=== PATIENT | male | born 1935 | race Caucasian/White ===

== ENCOUNTER 2019-03-22 21:25 | Emergency (ER) | payer MEDICARE, BC | END 2019-03-22 22:35 | disposition home or self-care (01) | LOC: MADERS 21:25 | DX: I10 Essential (primary) hypertension (principal); Z79.891 Long term (current) use of opiate analgesic; Z79.82 Long term (current) use of aspirin; Z79.899 Other long term (current) drug therapy | CPT/HCPCS: 99282 ==

== ENCOUNTER 2021-02-04 01:29 | Emergency (ER) | payer MEDICARE, BC ==
[2021-02-04] MEDS ORDERED: Sodium Chloride 0.9% 100 ML ONE ×2 (02:08→03:53)
[2021-02-04] MEDS ORDERED: Sodium Chloride 0.9% 250 ML 500 ML ONE (02:08)
[2021-02-04] MEDS ORDERED: Vancomycin HCl 750 MG VIAL ONE (02:08)
[2021-02-04] MEDS ORDERED: Cefepime 2 GM VIAL ONE (02:09)
[2021-02-04 02:34] LABS: INR-International Normal Ratio 0.9; PTT 26.4 sec (22.9-36.1); Prothrombin Time 12.3 sec (12.0-14.7)
[2021-02-04 02:35] LABS: Hemoglobin 12.1 g/dL (14.0-18.0); Mean Corpuscular HGB CONC 34.2 g/dL (32.0-36.0); Mean Corpuscular Hemoglobin 32.5 pg (27.0-31.0); Mean Platelet Volume 7.2 fL (7.4-10.4); Platelet Count 110 thou/uL (130-400); RBC Distribution Width 13.9 % (11.5-14.5); Red Blood Cell (RBC) Count 3.72 mill/uL (4.70-6.10); White Blood Cell (WBC) Count 2.9 thou/uL (4.8-10.8)
[2021-02-04 03:00] LABS: ALT (SGPT) 20 U/L (8-55); AST (SGOT) 24 U/L (5-34); Albumin 3.5 g/dL (3.4-4.8); Alkaline Phosphatase 76 U/L (40-110); Anion Gap 12 mmol/L (10-20); BUN (Urea Nitrogen) 20 mg/dL (8.4-25.7); Bilirubin, Total 0.7 mg/dL (0.2-1.2); CK (CPK) 29 U/L (30-200); Calc. Creatinine Clearance 0 mL/min (70-130); Calcium 8.6 mg/dL (7.8-10.44); Carbon Dioxide 26 mmol/L (23-31); Chloride 101 mmol/L (98-107); Globulin 2.9 g/dL (2.4-3.5); Glucose 136 mg/dL (83-110); Lipase 15 U/L (8-78); Potassium 4.5 mmol/L (3.5-5.1); Protein, Total 6.4 g/dL (5.8-8.1); Sodium 134 mmol/L (136-145)
[2021-02-04 03:22] LABS: Band 7 % (5-11); Lymphocytes 7 % (21-51); MDiff Complete? YES; Monocytes 5 % (0-10); Neutrophil 79 % (42-75); Platelet Morphology Comment Appears Decreased; Polychromasia SLIGHT = 2-3 cells (100X) (0-2/hpf); Reactive Lymphocytes 2 % (0-10)
[2021-02-04 03:38] LABS: Bilirubin Negative (Negative); Blood, Urine Negative (Negative); Clarity Clear (Clear); Glucose, Urine (Dipstick) Negative (Negative); Ketone, Urine Negative (Negative); Leukocyte Negative (Negative); Nitrite Negative (Negative); Protein, Urine (Dipstick) Negative (Neg-Trace); pH, Urine 8.5 (5.0-9.0)
[2021-02-04] MEDS ORDERED: Tranexamic Acid 1,000 MG/10 ML VIAL ONE ×3 (03:52→04:03)
[2021-02-04] MEDS ORDERED: manNITOL 20% 500 ML ONE (03:52)
[2021-02-04] MEDS ORDERED: Sodium Chloride 0.9% 1,000 ML ONE (03:53)
[2021-02-04] MEDS ORDERED: Sodium Chloride 0.9% 250 ML 250 ML ONE (04:03)
[2021-02-04] MEDS ORDERED: Sodium Chloride 0.9% 100 ML BAG ONE (06:53)
[2021-02-04] MEDS ORDERED: Iopamidol 370 76% 125 ML VIAL FS ONE (11:25)
== END 2021-02-04 04:46 | disposition short-term general hospital (02) ==
LOC: MADERS 01:29
DX: A41.9 Sepsis, unspecified organism (principal); R65.20 Severe sepsis without septic shock; I62.01 Nontraumatic acute subdural hemorrhage; I62.03 Nontraumatic chronic subdural hemorrhage; R53.1 Weakness; I10 Essential (primary) hypertension; Z85.01 Personal history of malignant neoplasm of esophagus; Z79.891 Long term (current) use of opiate analgesic; Z79.899 Other long term (current) drug therapy
CPT/HCPCS: 70450; 71045; 71275; 80053; 81003; 82140; 82550; 83605; 83690; 84443; 84484; 85025; 85610; 85730; 87040; 87086; 87804; 93005; 94760; 96365; 96368; 96375; 96376; J0692; J3370; J3490; J7050; J7799; Q9967

== ENCOUNTER 2021-02-11 21:34 | Inpatient (IN) | payer MEDICARE, BC ==
[2021-02-11] MEDS ORDERED: Metoclopramide HCl 10 MG TAB PER TUBE PRN (22:07)
[2021-02-11] MEDS ORDERED: Bisacodyl 10 MG SUPP PR PRN (22:07)
[2021-02-11] MEDS ORDERED: Ondansetron ODT 4 MG TAB PO PRN (22:07)
[2021-02-11] MEDS ORDERED: Hydrocodone-Acetamin 15 ML UDCUP PER TUBE PRN (22:07)
[2021-02-12] MEDS ORDERED: Cephalexin 250 MG CAP PO SCH ×2 (00:30→09:00)
[2021-02-12] MEDS ORDERED: Amiodarone 200 MG TAB PO SCH ×2 (00:30→09:00)
[2021-02-12 06:02] LABS: ALT (SGPT) 16 U/L (8-55); AST (SGOT) 23 U/L (5-34); Albumin 2.9 g/dL (3.4-4.8); Alkaline Phosphatase 71 U/L (40-110); Anion Gap 11 mmol/L (10-20); BUN (Urea Nitrogen) 21 mg/dL (8.4-25.7); Bilirubin, Total 0.6 mg/dL (0.2-1.2); Calc. Creatinine Clearance 100 mL/min (70-130); Calcium 8.2 mg/dL (7.8-10.44); Carbon Dioxide 24 mmol/L (23-31); Chloride 102 mmol/L (98-107); Globulin 2.8 g/dL (2.4-3.5); Glucose 102 mg/dL (83-110); Potassium 4.5 mmol/L (3.5-5.1); Protein, Total 5.7 g/dL (5.8-8.1); Sodium 132 mmol/L (136-145)
[2021-02-12 06:11] LABS: Eosinophils 3 % (0-10); Hemoglobin 11.6 g/dL (14.0-18.0); Lymphocytes 15 % (21-51); MDiff Complete? YES; Mean Corpuscular HGB CONC 33.4 g/dL (32.0-36.0); Mean Corpuscular Hemoglobin 31.6 pg (27.0-31.0); Mean Corpuscular Volume 94.5 fL (78.0-98.0); Mean Platelet Volume 6.8 fL (7.4-10.4); Monocytes 9 % (0-10); Neutrophil 73 % (42-75); Platelet Count 160 thou/uL (130-400); Platelet Morphology Comment Appears Adequate; RBC Distribution Width 14.1 % (11.5-14.5); RBC Morphology Normal; Red Blood Cell (RBC) Count 3.68 mill/uL (4.70-6.10); White Blood Cell (WBC) Count 4.9 thou/uL (4.8-10.8)
[2021-02-12] MEDS ORDERED: Ondansetron ODT 4 MG TAB PER TUBE PRN (12:30)
[2021-02-12] MEDS ORDERED: Melatonin 3 MG TAB PER TUBE PRN (13:12)
[2021-02-12] MEDS ORDERED: Sodium Bicarbonate Tab 325 MG TAB PER TUBE PRN (13:45)
[2021-02-12] MEDS ORDERED: Pancrelipase DR 12,000 1 CAP FS PRN (13:45)
[2021-02-12] MEDS ORDERED: Scopolamine 1.5 mg/72 hour Patch TD SCH (14:00)
[2021-02-12] MEDS ORDERED: Atropine Sulfate 1% Ophth Soln 5 ml Bottle PO SCH ×3 (16:30→18:00)
[2021-02-12] MEDS: Atropine Sulfate 1% Ophth Soln 5 ml Bottle PO SCH (18:22)
[2021-02-12] MEDS: Cephalexin 250 MG/5 ML Oral Suspension PER TUBE SCH (20:20)
[2021-02-12] MEDS: Amiodarone 200 MG TAB PER TUBE SCH (20:21)
[2021-02-13] MEDS: Atropine Sulfate 1% Ophth Soln 5 ml Bottle PO SCH ×4 (05:37→17:20)
[2021-02-13] MEDS: Cephalexin 250 MG/5 ML Oral Suspension PER TUBE SCH ×2 (09:24→21:20)
[2021-02-13] MEDS: Amiodarone 200 MG TAB PER TUBE SCH ×2 (09:33→21:18)
[2021-02-13] MEDS: Pantoprazole 40 MG GRANULES PACKET PER TUBE SCH (09:33)
[2021-02-13] MEDS ORDERED: Amiodarone 200 MG TAB ONE (20:20)
[2021-02-14] MEDS: Atropine Sulfate 1% Ophth Soln 5 ml Bottle PO SCH ×5 (00:32→23:54)
[2021-02-14] MEDS: Pantoprazole 40 MG GRANULES PACKET PER TUBE SCH (08:40)
[2021-02-14] MEDS: Amiodarone 200 MG TAB PER TUBE SCH ×2 (08:40→20:26)
[2021-02-14] MEDS: Cephalexin 250 MG/5 ML Oral Suspension PER TUBE SCH ×2 (08:45→20:28)
[2021-02-14 16:34] VITALS: BMI 23.6
[2021-02-15] MEDS: Atropine Sulfate 1% Ophth Soln 5 ml Bottle PO SCH ×3 (05:59→17:57)
[2021-02-15] MEDS ORDERED: Ibuprofen 600 MG TAB PER TUBE PRN (08:59)
[2021-02-15] MEDS: Pantoprazole 40 MG GRANULES PACKET PER TUBE SCH (09:05)
[2021-02-15] MEDS: Amiodarone 200 MG TAB PER TUBE SCH ×2 (09:06→20:51)
[2021-02-15] MEDS: Cephalexin 250 MG/5 ML Oral Suspension PER TUBE SCH ×2 (09:11→20:53)
[2021-02-15] MEDS ORDERED: Betamethasone 0.1% Cream 15 GM TUBE TOP PRN (12:20)
[2021-02-16] MEDS: Atropine Sulfate 1% Ophth Soln 5 ml Bottle PO SCH ×4 (00:33→17:34)
[2021-02-16] MEDS: Cephalexin 250 MG/5 ML Oral Suspension PER TUBE SCH ×2 (09:04→21:06)
[2021-02-16] MEDS: Amiodarone 200 MG TAB PER TUBE SCH ×2 (09:06→21:05)
[2021-02-16] MEDS ORDERED: Cephalexin 250 MG/5 ML Oral Suspension ONE (19:49)
[2021-02-17] MEDS: Atropine Sulfate 1% Ophth Soln 5 ml Bottle PO SCH ×4 (00:11→18:15)
[2021-02-17] MEDS: Amiodarone 200 MG TAB PER TUBE SCH ×2 (09:55→21:13)
[2021-02-17] MEDS: Cephalexin 250 MG/5 ML Oral Suspension PER TUBE SCH (09:56)
[2021-02-18] MEDS: Atropine Sulfate 1% Ophth Soln 5 ml Bottle PO SCH ×5 (00:50→23:40)
[2021-02-18] MEDS: Amiodarone 200 MG TAB PER TUBE SCH ×2 (09:45→20:32)
[2021-02-19 05:39] LABS: #Eosinphils 0.1 thou/uL (0.0-0.7); #Lymphocytes 1.8 thou/uL (1.20-3.40); #Monocytes 0.8 thou/uL (0.11-0.59); #Neutrophils 3.9 thou/uL (1.40-6.50); %Basophils 0.8 % (0.0-1.0); %Eosinophils 1.5 % (0.0-10.0); %Lymphocytes 26.6 % (21.0-51.0); %Monocytes 12.5 % (0.0-10.0); %Neutrophils 58.7 % (42.0-75.0); Hemoglobin 11.3 g/dL (14.0-18.0); Mean Corpuscular HGB CONC 33.7 g/dL (32.0-36.0); Mean Corpuscular Hemoglobin 32.4 pg (27.0-31.0); Mean Corpuscular Volume 96.1 fL (78.0-98.0); Mean Platelet Volume 6.1 fL (7.4-10.4); Platelet Count 165 thou/uL (130-400); RBC Distribution Width 14.6 % (11.5-14.5); Red Blood Cell (RBC) Count 3.49 mill/uL (4.70-6.10); White Blood Cell (WBC) Count 6.6 thou/uL (4.8-10.8)
[2021-02-19] MEDS: Atropine Sulfate 1% Ophth Soln 5 ml Bottle PO SCH ×4 (05:45→23:42)
[2021-02-19 05:47] LABS: Anion Gap 11 mmol/L (10-20); BUN (Urea Nitrogen) 31 mg/dL (8.4-25.7); Calc. Creatinine Clearance 87 mL/min (70-130); Calcium 8.4 mg/dL (7.8-10.44); Carbon Dioxide 27 mmol/L (23-31); Chloride 103 mmol/L (98-107); Glucose 89 mg/dL (83-110); Potassium 4.7 mmol/L (3.5-5.1); Sodium 136 mmol/L (136-145)
[2021-02-19] MEDS: Amiodarone 200 MG TAB PER TUBE SCH ×2 (09:16→20:45)
[2021-02-20] MEDS: Atropine Sulfate 1% Ophth Soln 5 ml Bottle PO SCH (05:42)
[2021-02-20] MEDS: Amiodarone 200 MG TAB PER TUBE SCH (09:58)
[2021-02-20 10:15] VITALS: BP 105/62; TEMP 99
[2021-02-24] MEDS ORDERED: Amiodarone 200 MG TAB PER TUBE SCH (21:00)
[2021-03-11] MEDS ORDERED: Amiodarone 200 MG TAB PER TUBE SCH (09:00)
== END 2021-02-20 11:00 | disposition home or self-care (01) | DRG 948 ==
LOC: MADMS 21:34
PROVIDERS: ADMIT Family Medicine; ATTEND Family Medicine
DX: R53.81 Other malaise (principal); E87.1 Hypo-osmolality and hyponatremia; E44.0 Moderate protein-calorie malnutrition; D64.9 Anemia, unspecified; K11.7 Disturbances of salivary secretion; I48.0 Paroxysmal atrial fibrillation; Z85.01 Personal history of malignant neoplasm of esophagus; Z92.21 Personal history of antineoplastic chemotherapy; Z92.3 Personal history of irradiation; Z93.1 Gastrostomy status; Z68.23 Body mass index [BMI] 23.0-23.9, adult; Z95.0 Presence of cardiac pacemaker; Z87.891 Personal history of nicotine dependence
CPT/HCPCS: 36415; 80048; 80053; 85007; 85025; 85027

== ENCOUNTER 2021-02-28 14:30 | Outpatient (CLI) | payer MEDICARE, BC | END 2021-02-28 14:31 | disposition home or self-care (01) | LOC: MADRAD 14:30 | PROVIDERS: ATTEND Neurological Surgery | DX: S06.5X9A Traumatic subdural hemorrhage with loss of consciousness of unspecified duration, initial encounter (principal); G93.5 Compression of brain | CPT/HCPCS: 70450 ==

== ENCOUNTER 2021-03-08 13:48 | Outpatient (CLI) | payer MEDICARE, BC | END 2021-03-08 13:49 | disposition home or self-care (01) | LOC: MADCT 13:48 | PROVIDERS: ATTEND Neurological Surgery | DX: I62.03 Nontraumatic chronic subdural hemorrhage (principal) | CPT/HCPCS: 70450 ==

== ENCOUNTER 2021-03-24 15:11 | Inpatient (IN) | payer MEDICARE, BC ==
[2021-03-24 15:35] VITALS: BMI 25.3
[2021-03-24] MEDS ORDERED: Atropine Sulfate 1% Ophth Soln 5 ml Bottle PO PRN (19:01)
[2021-03-24] MEDS ORDERED: Metoclopramide HCl 10 MG TAB PER TUBE PRN (19:01)
[2021-03-24] MEDS ORDERED: Promethazine HCl 25 MG SUPP PR PRN (19:01)
[2021-03-24] MEDS ORDERED: HYDROcodone/Acetaminophen 10/325 mg Tablet PO PRN (19:01)
[2021-03-24] MEDS ORDERED: Docusate 100 MG CAP PO PRN (19:01)
[2021-03-24] MEDS ORDERED: Ondansetron ODT 4 MG TAB PO PRN (19:01)
[2021-03-24] MEDS ORDERED: Bisacodyl 10 MG SUPP PR PRN (19:01)
[2021-03-24] MEDS: Sodium Chloride 1 GM TAB PER TUBE SCH (20:55)
[2021-03-25] MEDS: Sodium Chloride 1 GM TAB PER TUBE SCH ×3 (09:00→19:45)
[2021-03-25] MEDS: Polyethylene Glycol 3350 17 GM Packet PER TUBE SCH (09:00)
[2021-03-25] MEDS: Amiodarone 200 MG TAB PO SCH (09:00)
[2021-03-25] MEDS: Pantoprazole 40 MG GRANULES PACKET PO SCH (13:45)
[2021-03-25] MEDS: HYDROcodone/Acetaminophen 10/325 mg Tablet PO PRN ×2 (13:45→22:56)
[2021-03-26 06:10] LABS: Anion Gap 10 mmol/L (10-20); BUN (Urea Nitrogen) 31 mg/dL (8.4-25.7); Calc. Creatinine Clearance 101 mL/min (70-130); Calcium 8.6 mg/dL (7.8-10.44); Carbon Dioxide 28 mmol/L (23-31); Chloride 102 mmol/L (98-107); Glucose 106 mg/dL (83-110); Sodium 135 mmol/L (136-145)
[2021-03-26] MEDS: Amiodarone 200 MG TAB PO SCH (09:31)
[2021-03-26] MEDS: Sodium Chloride 1 GM TAB PER TUBE SCH ×3 (09:31→20:08)
[2021-03-26] MEDS: Pantoprazole 40 MG GRANULES PACKET PO SCH (09:31)
[2021-03-26] MEDS: Polyethylene Glycol 3350 17 GM Packet PER TUBE SCH (09:32)
[2021-03-26] MEDS: HYDROcodone/Acetaminophen 10/325 mg Tablet PO PRN (20:50)
[2021-03-27] MEDS: Amiodarone 200 MG TAB PO SCH (12:00)
[2021-03-27] MEDS: Sodium Chloride 1 GM TAB PER TUBE SCH ×3 (12:00→20:37)
[2021-03-27] MEDS: Polyethylene Glycol 3350 17 GM Packet PER TUBE SCH (12:00)
[2021-03-27] MEDS: Pantoprazole 40 MG GRANULES PACKET PO SCH (12:00)
[2021-03-27] MEDS ORDERED: Sodium Chloride 1 GM TAB ONE (12:09)
[2021-03-27] MEDS: HYDROcodone/Acetaminophen 10/325 mg Tablet PO PRN (17:28)
[2021-03-28] MEDS: Sodium Chloride 1 GM TAB PER TUBE SCH ×3 (11:45→20:27)
[2021-03-28] MEDS: Amiodarone 200 MG TAB PO SCH (11:45)
[2021-03-28] MEDS: Pantoprazole 40 MG GRANULES PACKET PO SCH (11:45)
[2021-03-28] MEDS: Polyethylene Glycol 3350 17 GM Packet PER TUBE SCH (11:45)
[2021-03-29] MEDS: HYDROcodone/Acetaminophen 10/325 mg Tablet PO PRN (04:26)
[2021-03-29 05:44] LABS: Anion Gap 13 mmol/L (10-20); BUN (Urea Nitrogen) 30 mg/dL (8.4-25.7); Calc. Creatinine Clearance 95 mL/min (70-130); Carbon Dioxide 27 mmol/L (23-31); Chloride 103 mmol/L (98-107); Glucose 103 mg/dL (83-110); Potassium 5.5 mmol/L (3.5-5.1); Sodium 137 mmol/L (136-145)
[2021-03-29] MEDS: Pantoprazole 40 MG GRANULES PACKET PO SCH (08:34)
[2021-03-29] MEDS: Sodium Chloride 1 GM TAB PER TUBE SCH ×2 (08:34→17:16)
[2021-03-29] MEDS: Amiodarone 200 MG TAB PO SCH (08:34)
[2021-03-29 17:38] LABS: SARS-CoV-2 NAA Rapid Test Not Detected (NotDetected)
[2021-03-30] MEDS: HYDROcodone/Acetaminophen 10/325 mg Tablet PO PRN (03:38)
[2021-03-30 08:00] VITALS: BP 113/66; TEMP 97.4
[2021-03-30] MEDS: Pantoprazole 40 MG GRANULES PACKET PO SCH (09:35)
[2021-03-30] MEDS: Amiodarone 200 MG TAB PO SCH (09:35)
== END 2021-03-30 14:15 | disposition home or self-care (01) | DRG 948 ==
LOC: MADMS 15:11
PROVIDERS: ADMIT Family Medicine; ATTEND Family Medicine
DX: R53.81 Other malaise (principal); C15.9 Malignant neoplasm of esophagus, unspecified; E87.1 Hypo-osmolality and hyponatremia; I10 Essential (primary) hypertension; G89.29 Other chronic pain; Z95.0 Presence of cardiac pacemaker; Z93.1 Gastrostomy status; Z87.891 Personal history of nicotine dependence; I48.0 Paroxysmal atrial fibrillation; S06.5X9D Traumatic subdural hemorrhage with loss of consciousness of unspecified duration, subsequent encounter; R13.10 Dysphagia, unspecified; E87.5 Hyperkalemia; X58.XXXD Exposure to other specified factors, subsequent encounter
CPT/HCPCS: 0240U; 36415; 80048

== ENCOUNTER 2021-04-04 12:40 | Outpatient (CLI) | payer MEDICARE, BC | END 2021-04-04 12:41 | disposition home or self-care (01) | LOC: MADRAD 12:40 | PROVIDERS: ATTEND Neurological Surgery | DX: I62.00 Nontraumatic subdural hemorrhage, unspecified (principal) | CPT/HCPCS: 70450 ==

== ENCOUNTER 2021-07-13 12:31 | Outpatient (CLI) | payer MEDICARE, BC | END 2021-07-13 12:32 | disposition home or self-care (01) | LOC: MADCT 12:31 | PROVIDERS: ATTEND Neurological Surgery | DX: S06.5X9D Traumatic subdural hemorrhage with loss of consciousness of unspecified duration, subsequent encounter (principal) | CPT/HCPCS: 70450 ==

== ENCOUNTER 2021-09-27 12:35 | Outpatient (CLI) | payer MEDICARE, BC | END 2021-09-27 12:36 | disposition home or self-care (01) | LOC: MADRAD 12:35 → MADCT 12:36 | PROVIDERS: ATTEND Family Medicine | DX: R51.9 Headache, unspecified (principal); R42 Dizziness and giddiness | CPT/HCPCS: 70450 ==

== ENCOUNTER 2022-05-15 13:18 | Outpatient (CLI) | payer MEDICARE, BC ==
[2022-05-15 14:10] LABS: ALT (SGPT) 12 U/L (8-55); AST (SGOT) 18 U/L (5-34); Albumin 3.8 g/dL (3.4-4.8); Alkaline Phosphatase 82 U/L (40-110); Anion Gap 15 mmol/L (10-20); BUN (Urea Nitrogen) 21 mg/dL (8.4-25.7); Bilirubin, Total 0.6 mg/dL (0.2-1.2); Calc. Creatinine Clearance 0 mL/min (70-130); Carbon Dioxide 23 mmol/L (23-31); Cardiac Risk 3.3 (Less than 4.5); Chloride 108 mmol/L (98-107); Cholesterol 140 mg/dl (< 200 Desired); Globulin 3.2 g/dL (2.4-3.5); Glucose 106 mg/dL (83-110); HDL Cholesterol 42 mg/dL (>60 Neg Risk); LDL Cholesterol, Calculated 81 mg/dL; Potassium 4.8 mmol/L (3.5-5.1); Sodium 141 mmol/L (136-145); Triglycerides 87 mg/dL (Less than 150)
== END 2022-05-15 13:19 | disposition home or self-care (01) ==
LOC: MADLAB 13:18
PROVIDERS: ATTEND Internal Medicine Cardiovascular Disease
DX: I48.0 Paroxysmal atrial fibrillation (principal)
CPT/HCPCS: 36415; 71046; 80053; 80061; 84443

== ENCOUNTER 2022-09-19 16:35 | Emergency (ER) | payer MEDICARE, BC ==
[2022-09-19] MEDS ORDERED: Sodium Chloride 0.9% 500 ML ONE (17:22)
[2022-09-19] MEDS ORDERED: Meclizine HCl 25 MG TAB ONE (17:22)
[2022-09-19 17:47] LABS: #Eosinphils 0.1 thou/uL (0.0-0.7); #Lymphocytes 1.2 thou/uL (1.20-3.40); #Monocytes 0.6 thou/uL (0.11-0.59); #Neutrophils 2.5 thou/uL (1.40-6.50); %Basophils 0.8 % (0.0-1.0); %Eosinophils 1.6 % (0.0-10.0); %Lymphocytes 26.8 % (21.0-51.0); %Monocytes 14.2 % (0.0-10.0); %Neutrophils 56.7 % (42.0-75.0); Hemoglobin 13.5 g/dL (14.0-18.0); Mean Corpuscular Hemoglobin 33.9 pg (27.0-31.0); Mean Corpuscular Volume 102.6 fL (78.0-98.0); Mean Platelet Volume 8.6 fL (7.4-10.4); Platelet Count 76 thou/uL (130-400); Platelet Morphology Comment Appears Decreased; RBC Distribution Width 14.1 % (11.5-14.5); Red Blood Cell (RBC) Count 3.98 mill/uL (4.70-6.10); White Blood Cell (WBC) Count 4.4 thou/uL (4.8-10.8)
[2022-09-19 17:50] LABS: ALT (SGPT) 20 U/L (8-55); AST (SGOT) 30 U/L (5-34); Albumin 3.3 g/dL (3.4-4.8); Alkaline Phosphatase 91 U/L (40-110); Anion Gap 10 mmol/L (10-20); BUN (Urea Nitrogen) 23 mg/dL (8.4-25.7); Bilirubin, Total 0.8 mg/dL (0.2-1.2); Calc. Creatinine Clearance 0 mL/min (70-130); Calcium 8.9 mg/dL (7.8-10.44); Carbon Dioxide 25 mmol/L (23-31); Chloride 108 mmol/L (98-107); Estimated GFR 63; Globulin 2.9 g/dL (2.4-3.5); Glucose 112 mg/dL (83-110); Potassium 4.8 mmol/L (3.5-5.1); Protein, Total 6.2 g/dL (5.8-8.1); Sodium 138 mmol/L (136-145)
== END 2022-09-19 18:45 | disposition home or self-care (01) ==
LOC: MADERS 16:35
DX: R42 Dizziness and giddiness (principal); I49.3 Ventricular premature depolarization; I10 Essential (primary) hypertension; Z79.899 Other long term (current) drug therapy
CPT/HCPCS: 70450; 80053; 85025; 93005; J7030

== ENCOUNTER 2022-10-14 19:33 | Emergency (ER) | payer OTHER, MEDICARE, BC ==
[2022-10-14 21:37] LABS: PTT 34.8 sec (22.9-36.1); Prothrombin Time 13.9 sec (12.0-14.7)
[2022-10-14 21:41] LABS: #Basophils 0.1 thou/uL (0.0-0.2); #Eosinphils 0.1 thou/uL (0.0-0.7); #Lymphocytes 1.3 thou/uL (1.20-3.40); #Monocytes 0.6 thou/uL (0.11-0.59); #Neutrophils 3.4 thou/uL (1.40-6.50); %Eosinophils 1.9 % (0.0-10.0); %Lymphocytes 23.3 % (21.0-51.0); %Monocytes 11.7 % (0.0-10.0); %Neutrophils 62.1 % (42.0-75.0); Hemoglobin 13.6 g/dL (14.0-18.0); MDiff Complete? YES; Macrocytosis SLIGHT = 6-15 cells (100X) (0-5/hpf); Mean Corpuscular HGB CONC 33.6 g/dL (32.0-36.0); Mean Corpuscular Volume 101.2 fl (78.0-98.0); Mean Platelet Volume 9.3 fL (7.4-10.4); Platelet Count 85 10x3/uL (130-400); Platelet Morphology Comment Appears Decreased; RBC Distribution Width 12.6 % (11.5-14.5); White Blood Cell (WBC) Count 5.4 10x3/uL (4.8-10.8)
[2022-10-14 21:46] LABS: ALT (SGPT) 26 U/L (8-55); AST (SGOT) 36 U/L (5-34); Albumin 3.5 g/dL (3.4-4.8); Alkaline Phosphatase 101 U/L (40-110); Anion Gap 12 mmol/L (10-20); BUN (Urea Nitrogen) 25 mg/dL (8.4-25.7); Bilirubin, Total 0.8 mg/dL (0.2-1.2); Calc. Creatinine Clearance 0 mL/min (70-130); Carbon Dioxide 23 mmol/L (23-31); Chloride 107 mmol/L (98-107); Estimated GFR 59; Globulin 3.4 g/dL (2.4-3.5); Glucose 104 mg/dL (83-110); Potassium 5.2 mmol/L (3.5-5.1); Protein, Total 6.9 g/dL (5.8-8.1); Sodium 137 mmol/L (136-145)
== END 2022-10-14 23:06 | disposition short-term general hospital (02) ==
LOC: MADERS 19:33
DX: S72.001A Fracture of unspecified part of neck of right femur, initial encounter for closed fracture (principal); I10 Essential (primary) hypertension; W01.0XXA Fall on same level from slipping, tripping and stumbling without subsequent striking against object, initial encounter
CPT/HCPCS: 80053; 85025; 85610; 85730

== ENCOUNTER 2022-10-17 14:58 | Inpatient (IN) | payer MEDICARE, BC ==
[2022-10-17] MEDS ORDERED: Bisacodyl 5 MG TAB PO PRN (17:13)
[2022-10-17] MEDS ORDERED: Senokot S 8.6-50 MG TAB PO PRN (17:13)
[2022-10-17] MEDS ORDERED: Loperamide HCl 2 MG CAP PO PRN (17:13)
[2022-10-17] MEDS ORDERED: Atropine Sulfate 1% Ophth Soln 5 ml Bottle PO PRN (17:16)
[2022-10-17] MEDS: Acetaminophen 325 MG TAB PO SCH ×2 (17:38→23:56)
[2022-10-17] MEDS: Acetaminophen/Codeine 30-300mg Tablet PO SCH ×2 (17:39→23:55)
[2022-10-17] MEDS: Ibuprofen 200 MG TAB PO SCH (20:29)
[2022-10-17] MEDS: Ferrous Gluconate 324 MG TAB PO SCH (20:29)
[2022-10-17] MEDS: Aspirin 81 mg Enteric Coated Tablet PO SCH (20:30)
[2022-10-17] MEDS: Tamsulosin HCl 0.4 MG CAP PO SCH (20:31)
[2022-10-17] MEDS: Senokot S 8.6-50 MG TAB PO SCH (20:57)
[2022-10-17] MEDS ORDERED: Lantiseptic Ointment 130 GM JAR TOP SCH (21:00)
[2022-10-17] MEDS: Melatonin 3 MG TAB PO PRN (23:55)
[2022-10-18] MEDS: Acetaminophen/Codeine 30-300mg Tablet PO SCH ×4 (06:19→23:51)
[2022-10-18] MEDS: Acetaminophen 325 MG TAB PO SCH ×4 (06:20→23:53)
[2022-10-18] MEDS: Ibuprofen 200 MG TAB PO SCH ×3 (06:37→21:59)
[2022-10-18] MEDS: Amiodarone 200 MG TAB PO SCH (09:18)
[2022-10-18] MEDS: Ferrous Gluconate 324 MG TAB PO SCH ×2 (09:18→22:00)
[2022-10-18] MEDS: Multivitamin W/ Minerals 1 TAB PO SCH (09:18)
[2022-10-18] MEDS: Aspirin 81 mg Enteric Coated Tablet PO SCH ×2 (09:18→22:02)
[2022-10-18] MEDS: Simvastatin 20 MG TAB PO SCH (09:18)
[2022-10-18] MEDS: Senokot S 8.6-50 MG TAB PO SCH ×2 (09:19→22:00)
[2022-10-18] MEDS: Polyethylene Glycol 3350 17 GM Packet PO SCH (09:19)
[2022-10-18] MEDS ORDERED: Calcium Carbonate 500 MG ChewTAB PO PRN (11:58)
[2022-10-18] MEDS: Tamsulosin HCl 0.4 MG CAP PO SCH (22:01)
[2022-10-19] MEDS: Ibuprofen 200 MG TAB PO SCH ×3 (05:38→20:49)
[2022-10-19] MEDS: Acetaminophen 325 MG TAB PO SCH ×3 (05:38→18:08)
[2022-10-19] MEDS: Acetaminophen/Codeine 30-300mg Tablet PO SCH ×3 (05:38→18:07)
[2022-10-19] MEDS: Ferrous Gluconate 324 MG TAB PO SCH ×2 (08:29→20:47)
[2022-10-19] MEDS: Polyethylene Glycol 3350 17 GM Packet PO SCH (08:29)
[2022-10-19] MEDS: Bisacodyl 10 MG SUPP PR PRN (08:30)
[2022-10-19] MEDS: Amiodarone 200 MG TAB PO SCH (08:30)
[2022-10-19] MEDS: Multivitamin W/ Minerals 1 TAB PO SCH (08:30)
[2022-10-19] MEDS: Simvastatin 20 MG TAB PO SCH (08:30)
[2022-10-19] MEDS: Senokot S 8.6-50 MG TAB PO SCH ×2 (08:30→20:50)
[2022-10-19] MEDS: Aspirin 81 mg Enteric Coated Tablet PO SCH ×2 (08:30→20:47)
[2022-10-19] MEDS: traMADol HCl 50 MG TAB PO PRN (09:34)
[2022-10-19] MEDS ORDERED: Calcium Carbonate 500 MG ChewTAB PO SCH (13:45)
[2022-10-19] MEDS ORDERED: Bisacodyl 10 MG SUPP PR SCH (14:30)
[2022-10-19] MEDS: Simethicone Chewable 80 MG TAB PO PRN (14:41)
[2022-10-19] MEDS: Tamsulosin HCl 0.4 MG CAP PO SCH (20:47)
[2022-10-20] MEDS: Acetaminophen 325 MG TAB PO SCH ×4 (01:18→18:04)
[2022-10-20] MEDS: Acetaminophen/Codeine 30-300mg Tablet PO SCH ×4 (01:21→18:03)
[2022-10-20] MEDS: Calcium Carbonate 500 MG ChewTAB PO PRN (01:21)
[2022-10-20] MEDS: Lantiseptic Ointment 130 GM JAR TOP SCH ×3 (01:22→20:52)
[2022-10-20] MEDS: Ibuprofen 200 MG TAB PO SCH ×3 (05:48→22:05)
[2022-10-20] MEDS: Multivitamin W/ Minerals 1 TAB PO SCH ×2 (07:12→08:33)
[2022-10-20] MEDS: Aspirin 81 mg Enteric Coated Tablet PO SCH ×3 (07:13→20:49)
[2022-10-20] MEDS: Senokot S 8.6-50 MG TAB PO SCH ×2 (08:27→20:49)
[2022-10-20] MEDS: Polyethylene Glycol 3350 17 GM Packet PO SCH (08:27)
[2022-10-20] MEDS: Amiodarone 200 MG TAB PO SCH (08:32)
[2022-10-20] MEDS: Simvastatin 20 MG TAB PO SCH (08:33)
[2022-10-20] MEDS: Ferrous Gluconate 324 MG TAB PO SCH ×2 (08:33→20:49)
[2022-10-20] MEDS: traMADol HCl 50 MG TAB PO PRN (19:48)
[2022-10-20] MEDS: Tamsulosin HCl 0.4 MG CAP PO SCH (20:49)
[2022-10-21] MEDS: Acetaminophen 325 MG TAB PO SCH ×4 (00:59→17:09)
[2022-10-21] MEDS: Acetaminophen/Codeine 30-300mg Tablet PO SCH ×3 (01:00→11:50)
[2022-10-21] MEDS: Ibuprofen 200 MG TAB PO SCH ×3 (05:31→21:21)
[2022-10-21] MEDS: Amiodarone 200 MG TAB PO SCH (08:38)
[2022-10-21] MEDS: Aspirin 81 mg Enteric Coated Tablet PO SCH ×2 (08:38→21:21)
[2022-10-21] MEDS: Ferrous Gluconate 324 MG TAB PO SCH ×2 (08:39→21:21)
[2022-10-21] MEDS: Senokot S 8.6-50 MG TAB PO SCH ×2 (08:39→21:21)
[2022-10-21] MEDS: Simvastatin 20 MG TAB PO SCH (08:39)
[2022-10-21] MEDS: Multivitamin W/ Minerals 1 TAB PO SCH (08:39)
[2022-10-21] MEDS: Polyethylene Glycol 3350 17 GM Packet PO SCH (08:39)
[2022-10-21] MEDS: Lantiseptic Ointment 130 GM JAR TOP SCH ×2 (08:40→21:21)
[2022-10-21] MEDS: Bisacodyl 10 MG SUPP PR PRN (09:31)
[2022-10-21] MEDS: Tamsulosin HCl 0.4 MG CAP PO SCH (21:21)
[2022-10-21] MEDS: Ondansetron ODT 4 MG TAB PO PRN (22:12)
[2022-10-22] MEDS: Acetaminophen 325 MG TAB PO SCH ×5 (00:41→23:49)
[2022-10-22] MEDS: Ibuprofen 200 MG TAB PO SCH ×3 (06:07→21:16)
[2022-10-22] MEDS: Simethicone Chewable 80 MG TAB PO PRN (08:09)
[2022-10-22] MEDS: Senokot S 8.6-50 MG TAB PO SCH ×2 (08:10→21:11)
[2022-10-22] MEDS: Aspirin 81 mg Enteric Coated Tablet PO SCH ×2 (08:10→21:12)
[2022-10-22] MEDS: Simvastatin 20 MG TAB PO SCH (08:10)
[2022-10-22] MEDS: Ferrous Gluconate 324 MG TAB PO SCH ×2 (08:10→21:11)
[2022-10-22] MEDS: Amiodarone 200 MG TAB PO SCH (08:10)
[2022-10-22] MEDS: Multivitamin W/ Minerals 1 TAB PO SCH (08:10)
[2022-10-22] MEDS: Polyethylene Glycol 3350 17 GM Packet PO SCH (08:11)
[2022-10-22] MEDS: Lantiseptic Ointment 130 GM JAR TOP SCH ×2 (08:11→21:12)
[2022-10-22] MEDS: Ondansetron ODT 4 MG TAB PO PRN ×2 (13:14→21:15)
[2022-10-22] MEDS: Tamsulosin HCl 0.4 MG CAP PO SCH (21:12)
[2022-10-23] MEDS: Acetaminophen 325 MG TAB PO SCH ×4 (01:47→17:35)
[2022-10-23] MEDS: Ibuprofen 200 MG TAB PO SCH ×3 (05:46→21:53)
[2022-10-23] MEDS: Amiodarone 200 MG TAB PO SCH (08:23)
[2022-10-23] MEDS: Polyethylene Glycol 3350 17 GM Packet PO SCH (08:24)
[2022-10-23] MEDS: Aspirin 81 mg Enteric Coated Tablet PO SCH ×2 (08:24→21:52)
[2022-10-23] MEDS: Simvastatin 20 MG TAB PO SCH (08:24)
[2022-10-23] MEDS: Senokot S 8.6-50 MG TAB PO SCH ×2 (08:25→21:52)
[2022-10-23] MEDS: Lantiseptic Ointment 130 GM JAR TOP SCH ×2 (08:26→21:54)
[2022-10-23] MEDS: Acetaminophen/Codeine 30-300mg Tablet PO PRN (08:36)
[2022-10-23] MEDS: Ferrous Gluconate 324 MG TAB PO SCH ×2 (08:37→21:52)
[2022-10-23] MEDS: Multivitamin W/ Minerals 1 TAB PO SCH (08:37)
[2022-10-23] MEDS: Tamsulosin HCl 0.4 MG CAP PO SCH (21:54)
[2022-10-24] MEDS: Acetaminophen 325 MG TAB PO SCH ×5 (00:24→23:59)
[2022-10-24] MEDS: Ibuprofen 200 MG TAB PO SCH ×3 (06:22→22:27)
[2022-10-24] MEDS: Acetaminophen/Codeine 30-300mg Tablet PO PRN ×2 (08:32→17:36)
[2022-10-24] MEDS: Ferrous Gluconate 324 MG TAB PO SCH ×2 (08:33→20:17)
[2022-10-24] MEDS: Multivitamin W/ Minerals 1 TAB PO SCH (08:33)
[2022-10-24] MEDS: Aspirin 81 mg Enteric Coated Tablet PO SCH ×2 (08:33→20:17)
[2022-10-24] MEDS: Amiodarone 200 MG TAB PO SCH (08:33)
[2022-10-24] MEDS: Simvastatin 20 MG TAB PO SCH (08:33)
[2022-10-24] MEDS: Senokot S 8.6-50 MG TAB PO SCH ×2 (08:33→20:17)
[2022-10-24] MEDS: Polyethylene Glycol 3350 17 GM Packet PO SCH (08:34)
[2022-10-24] MEDS: Lantiseptic Ointment 130 GM JAR TOP SCH ×2 (08:34→20:19)
[2022-10-24] MEDS: Ondansetron ODT 4 MG TAB PO PRN ×2 (13:25→20:18)
[2022-10-24] MEDS: Melatonin 3 MG TAB PO PRN (20:17)
[2022-10-24] MEDS: Tamsulosin HCl 0.4 MG CAP PO SCH (20:17)
[2022-10-24] MEDS: Bisacodyl 10 MG SUPP PR PRN (20:53)
[2022-10-25] MEDS: Ibuprofen 200 MG TAB PO SCH ×3 (05:46→21:56)
[2022-10-25] MEDS: Acetaminophen 325 MG TAB PO SCH ×3 (05:46→18:03)
[2022-10-25] MEDS: Amiodarone 200 MG TAB PO SCH (08:49)
[2022-10-25] MEDS: Polyethylene Glycol 3350 17 GM Packet PO SCH (08:51)
[2022-10-25] MEDS: Multivitamin W/ Minerals 1 TAB PO SCH (08:51)
[2022-10-25] MEDS: Lantiseptic Ointment 130 GM JAR TOP SCH ×2 (08:51→20:21)
[2022-10-25] MEDS: Senokot S 8.6-50 MG TAB PO SCH ×2 (08:52→20:21)
[2022-10-25] MEDS: Ferrous Gluconate 324 MG TAB PO SCH ×2 (08:52→20:20)
[2022-10-25] MEDS: Simvastatin 20 MG TAB PO SCH (08:52)
[2022-10-25] MEDS: Aspirin 81 mg Enteric Coated Tablet PO SCH ×2 (08:52→20:21)
[2022-10-25] MEDS: Acetaminophen/Codeine 30-300mg Tablet PO PRN (09:51)
[2022-10-25] MEDS: Tamsulosin HCl 0.4 MG CAP PO SCH (20:20)
[2022-10-26] MEDS: Acetaminophen 325 MG TAB PO SCH ×4 (01:28→17:29)
[2022-10-26] MEDS: Ibuprofen 200 MG TAB PO SCH ×2 (06:20→14:29)
[2022-10-26] MEDS: Aspirin 81 mg Enteric Coated Tablet PO SCH ×2 (08:59→20:04)
[2022-10-26] MEDS: Amiodarone 200 MG TAB PO SCH (08:59)
[2022-10-26] MEDS: Simvastatin 20 MG TAB PO SCH (09:00)
[2022-10-26] MEDS: Ferrous Gluconate 324 MG TAB PO SCH ×2 (09:02→20:04)
[2022-10-26] MEDS: Lantiseptic Ointment 130 GM JAR TOP SCH ×2 (09:03→20:08)
[2022-10-26] MEDS: Multivitamin W/ Minerals 1 TAB PO SCH (09:03)
[2022-10-26] MEDS: Polyethylene Glycol 3350 17 GM Packet PO SCH (09:04)
[2022-10-26] MEDS: Senokot S 8.6-50 MG TAB PO SCH ×3 (09:05→20:05)
[2022-10-26] MEDS: traMADol HCl 50 MG TAB PO PRN (20:01)
[2022-10-26] MEDS: Tamsulosin HCl 0.4 MG CAP PO SCH (20:04)
[2022-10-27] MEDS: Ibuprofen 200 MG TAB PO SCH ×4 (00:02→21:03)
[2022-10-27] MEDS: Acetaminophen 325 MG TAB PO SCH ×4 (00:03→18:29)
[2022-10-27] MEDS: Amiodarone 200 MG TAB PO SCH (08:36)
[2022-10-27] MEDS: Ferrous Gluconate 324 MG TAB PO SCH ×2 (08:36→21:02)
[2022-10-27] MEDS: Lantiseptic Ointment 130 GM JAR TOP SCH ×2 (08:36→21:02)
[2022-10-27] MEDS: Aspirin 81 mg Enteric Coated Tablet PO SCH ×2 (08:36→21:02)
[2022-10-27] MEDS: Multivitamin W/ Minerals 1 TAB PO SCH (08:37)
[2022-10-27] MEDS: Senokot S 8.6-50 MG TAB PO SCH ×2 (08:37→21:15)
[2022-10-27] MEDS: Simvastatin 20 MG TAB PO SCH (08:37)
[2022-10-27] MEDS: Polyethylene Glycol 3350 17 GM Packet PO SCH (08:37)
[2022-10-27] MEDS: Ondansetron ODT 4 MG TAB PO PRN (08:39)
[2022-10-27] MEDS: Acetaminophen/Codeine 30-300mg Tablet PO PRN (11:59)
[2022-10-27] MEDS: Meclizine HCl 25 MG TAB PO PRN (12:00)
[2022-10-27] MEDS: Tamsulosin HCl 0.4 MG CAP PO SCH (21:01)
[2022-10-28] MEDS: traMADol HCl 50 MG TAB PO PRN (00:30)
[2022-10-28] MEDS: Acetaminophen 325 MG TAB PO SCH ×5 (00:31→23:41)
[2022-10-28] MEDS: Ibuprofen 200 MG TAB PO SCH ×3 (06:03→21:41)
[2022-10-28] MEDS: Calcium Carbonate 500 MG ChewTAB PO PRN (08:21)
[2022-10-28] MEDS: Acetaminophen/Codeine 30-300mg Tablet PO PRN (08:21)
[2022-10-28] MEDS: Amiodarone 200 MG TAB PO SCH (12:09)
[2022-10-28] MEDS: Lantiseptic Ointment 130 GM JAR TOP SCH ×2 (12:11→21:10)
[2022-10-28] MEDS: Multivitamin W/ Minerals 1 TAB PO SCH (12:11)
[2022-10-28] MEDS: Ferrous Gluconate 324 MG TAB PO SCH ×2 (12:11→21:10)
[2022-10-28] MEDS: Polyethylene Glycol 3350 17 GM Packet PO SCH (12:13)
[2022-10-28] MEDS: Senokot S 8.6-50 MG TAB PO SCH ×2 (12:16→21:11)
[2022-10-28] MEDS: Simvastatin 20 MG TAB PO SCH (12:17)
[2022-10-28] MEDS: Aspirin 81 mg Enteric Coated Tablet PO SCH ×2 (12:18→21:10)
[2022-10-28] MEDS: Tamsulosin HCl 0.4 MG CAP PO SCH (21:11)
[2022-10-28] MEDS: Melatonin 3 MG TAB PO PRN (23:16)
[2022-10-29] MEDS: Acetaminophen 325 MG TAB PO SCH ×3 (05:26→18:56)
[2022-10-29] MEDS: Ibuprofen 200 MG TAB PO SCH ×3 (05:27→22:19)
[2022-10-29] MEDS: Acetaminophen/Codeine 30-300mg Tablet PO PRN (11:35)
[2022-10-29] MEDS: Amiodarone 200 MG TAB PO SCH (11:36)
[2022-10-29] MEDS: Ferrous Gluconate 324 MG TAB PO SCH ×2 (12:06→20:43)
[2022-10-29] MEDS: Aspirin 81 mg Enteric Coated Tablet PO SCH ×2 (12:06→20:43)
[2022-10-29] MEDS: Lantiseptic Ointment 130 GM JAR TOP SCH ×2 (12:07→20:45)
[2022-10-29] MEDS: Senokot S 8.6-50 MG TAB PO SCH ×2 (12:07→20:43)
[2022-10-29] MEDS: Simvastatin 20 MG TAB PO SCH (12:07)
[2022-10-29] MEDS: Multivitamin W/ Minerals 1 TAB PO SCH (12:07)
[2022-10-29] MEDS: Polyethylene Glycol 3350 17 GM Packet PO SCH (12:07)
[2022-10-29] MEDS: Tamsulosin HCl 0.4 MG CAP PO SCH (20:43)
[2022-10-29] MEDS: Melatonin 3 MG TAB PO PRN (20:43)
[2022-10-30] MEDS: Acetaminophen 325 MG TAB PO SCH ×3 (00:03→13:18)
[2022-10-30] MEDS: Ibuprofen 200 MG TAB PO SCH ×2 (05:32→16:09)
[2022-10-30] MEDS: Aspirin 81 mg Enteric Coated Tablet PO SCH ×2 (08:20→20:17)
[2022-10-30] MEDS: Acetaminophen/Codeine 30-300mg Tablet PO PRN (08:20)
[2022-10-30] MEDS: Simvastatin 20 MG TAB PO SCH (08:20)
[2022-10-30] MEDS: Amiodarone 200 MG TAB PO SCH (08:21)
[2022-10-30] MEDS: Ferrous Gluconate 324 MG TAB PO SCH ×2 (08:22→20:17)
[2022-10-30] MEDS: Multivitamin W/ Minerals 1 TAB PO SCH (08:22)
[2022-10-30] MEDS: Lantiseptic Ointment 130 GM JAR TOP SCH ×2 (08:22→20:19)
[2022-10-30] MEDS: Senokot S 8.6-50 MG TAB PO SCH ×2 (08:23→20:18)
[2022-10-30] MEDS: Polyethylene Glycol 3350 17 GM Packet PO SCH (08:23)
[2022-10-30] MEDS ORDERED: Ibuprofen 200 MG TAB PO PRN (16:30)
[2022-10-30] MEDS: Tamsulosin HCl 0.4 MG CAP PO SCH (20:17)
[2022-10-31] MEDS: Acetaminophen/Codeine 30-300mg Tablet PO PRN (08:29)
[2022-10-31] MEDS: Simvastatin 20 MG TAB PO SCH (08:31)
[2022-10-31] MEDS: Polyethylene Glycol 3350 17 GM Packet PO SCH (08:31)
[2022-10-31] MEDS: Amiodarone 200 MG TAB PO SCH (08:31)
[2022-10-31] MEDS: Senokot S 8.6-50 MG TAB PO SCH ×2 (08:33→20:36)
[2022-10-31] MEDS: Multivitamin W/ Minerals 1 TAB PO SCH (08:33)
[2022-10-31] MEDS: Aspirin 81 mg Enteric Coated Tablet PO SCH ×2 (08:33→20:35)
[2022-10-31] MEDS: Ferrous Gluconate 324 MG TAB PO SCH ×2 (08:33→20:36)
[2022-10-31] MEDS: Lantiseptic Ointment 130 GM JAR TOP SCH ×2 (08:45→20:36)
[2022-10-31 17:22] LABS: Bilirubin Negative (Negative); Blood, Urine Moderate (Negative); Glucose, Urine (Dipstick) Negative (Negative); Ketone, Urine Negative (Negative); Leukocyte Moderate (Negative); Nitrite Positive (Negative); Protein, Urine (Dipstick) 30 mg/dL (Neg-Trace); Specific Gravity, Urine 1.015 (1.005-1.030); Urobilinogen > or = 8.0 mg/dL (Less than 2)
[2022-10-31 17:42] LABS: Clarity Cloudy (Clear)
[2022-10-31 17:45] LABS: Bacteria/HPF 3+ HPF (None Seen); Squamous Epithelial 0-3 HPF (0-3); WBC/HPF Greater Than 50 HPF (0-3)
[2022-10-31] MEDS: Melatonin 3 MG TAB PO PRN (20:35)
[2022-10-31] MEDS: Tamsulosin HCl 0.4 MG CAP PO SCH (20:36)
[2022-10-31] MEDS ORDERED: Ciprofloxacin 500 MG TAB PO SCH (21:45)
[2022-11-01] MEDS: Acetaminophen/Codeine 30-300mg Tablet PO PRN (06:02)
[2022-11-01] MEDS: Ciprofloxacin 500 MG TAB PO SCH ×2 (06:02→21:58)
[2022-11-01] MEDS: Ferrous Gluconate 324 MG TAB PO SCH ×2 (09:01→21:17)
[2022-11-01] MEDS: Aspirin 81 mg Enteric Coated Tablet PO SCH ×2 (09:01→21:17)
[2022-11-01] MEDS: Simvastatin 20 MG TAB PO SCH (09:01)
[2022-11-01] MEDS: Amiodarone 200 MG TAB PO SCH (09:01)
[2022-11-01] MEDS: Multivitamin W/ Minerals 1 TAB PO SCH (09:01)
[2022-11-01] MEDS: Senokot S 8.6-50 MG TAB PO SCH ×2 (09:02→21:17)
[2022-11-01] MEDS: Polyethylene Glycol 3350 17 GM Packet PO SCH (09:03)
[2022-11-01 11:07] LABS: ALT (SGPT) 10 U/L (8-55); AST (SGOT) 17 U/L (5-34); Albumin 2.9 g/dL (3.4-4.8); Alkaline Phosphatase 129 U/L (40-110); Anion Gap 11 mmol/L (10-20); BUN (Urea Nitrogen) 35 mg/dL (8.4-25.7); Calc. Creatinine Clearance 64 mL/min (70-130); Calcium 8.6 mg/dL (7.8-10.44); Carbon Dioxide 22 mmol/L (23-31); Chloride 105 mmol/L (98-107); Estimated GFR 58; Globulin 3.2 g/dL (2.4-3.5); Glucose 109 mg/dL (83-110); Potassium 4.8 mmol/L (3.5-5.1); Protein, Total 6.1 g/dL (5.8-8.1); Sodium 133 mmol/L (136-145)
[2022-11-01 11:20] LABS: #Basophils 0.1 thou/uL (0.0-0.2); #Lymphocytes 0.8 thou/uL (1.20-3.40); #Neutrophils 10.4 thou/uL (1.40-6.50); %Basophils 0.5 % (0.0-1.0); %Eosinophils 0.4 % (0.0-10.0); %Lymphocytes 6.8 % (21.0-51.0); %Neutrophils 84.3 % (42.0-75.0); Hemoglobin 10.3 g/dL (14.0-18.0); Mean Corpuscular Hemoglobin 34.2 pg (27.0-31.0); Mean Corpuscular Volume 100.8 fl (78.0-98.0); Mean Platelet Volume 6.8 fL (7.4-10.4); Platelet Count 192 10x3/uL (130-400); RBC Distribution Width 12.4 % (11.5-14.5); White Blood Cell (WBC) Count 12.3 10x3/uL (4.8-10.8)
[2022-11-01 11:26] LABS: Macrocytosis SLIGHT = 6-15 cells (100X) (0-5/hpf)
[2022-11-01] MEDS ORDERED: Amino Acids 4.25 %/Dextrose 5% 2,000 ML BAG IV SCH (12:00)
[2022-11-01] MEDS: Lantiseptic Ointment 130 GM JAR TOP SCH ×2 (14:27→21:53)
[2022-11-01] MEDS ORDERED: Lidocaine-Prilocaine 2.5% Cream 5 GM TUBE ONE (16:47)
[2022-11-01] MEDS: Lidocaine-Prilocaine 2.5% Cream 5 GM TUBE TOP PRN (17:21)
[2022-11-01] MEDS: Amino Acids 4.25 %/Dextrose 5% 2,000 ML IV SCH (17:34)
[2022-11-01] MEDS: Ondansetron ODT 4 MG TAB PO PRN (18:33)
[2022-11-01] MEDS: Tamsulosin HCl 0.4 MG CAP PO SCH (21:17)
[2022-11-02] MEDS: Ciprofloxacin 500 MG TAB PO SCH ×2 (06:14→21:16)
[2022-11-02] MEDS: Simvastatin 20 MG TAB PO SCH (09:15)
[2022-11-02] MEDS: Aspirin 81 mg Enteric Coated Tablet PO SCH ×2 (09:15→21:16)
[2022-11-02] MEDS: Amiodarone 200 MG TAB PO SCH (09:15)
[2022-11-02] MEDS: Ferrous Gluconate 324 MG TAB PO SCH ×2 (09:16→21:19)
[2022-11-02] MEDS: Ondansetron ODT 4 MG TAB PO PRN (09:16)
[2022-11-02] MEDS: Polyethylene Glycol 3350 17 GM Packet PO SCH (09:17)
[2022-11-02] MEDS: Multivitamin W/ Minerals 1 TAB PO SCH (09:17)
[2022-11-02] MEDS: Senokot S 8.6-50 MG TAB PO SCH ×2 (09:17→21:18)
[2022-11-02] MEDS: Lantiseptic Ointment 130 GM JAR TOP SCH ×2 (09:20→23:59)
[2022-11-02] MEDS ORDERED: Ciprofloxacin 500 MG TAB PO SCH (11:45)
[2022-11-02] MEDS: Amino Acids 4.25 %/Dextrose 5% 2,000 ML IV SCH (16:18)
[2022-11-02] MEDS: Tamsulosin HCl 0.4 MG CAP PO SCH (21:18)
[2022-11-03] MEDS: Ciprofloxacin 500 MG TAB PO SCH ×3 (06:21→21:58)
[2022-11-03] MEDS: Aspirin 81 mg Enteric Coated Tablet PO SCH ×2 (08:29→21:58)
[2022-11-03] MEDS: Amiodarone 200 MG TAB PO SCH (08:29)
[2022-11-03] MEDS: Simvastatin 20 MG TAB PO SCH (08:29)
[2022-11-03] MEDS: Ferrous Gluconate 324 MG TAB PO SCH ×2 (08:29→22:19)
[2022-11-03] MEDS: Polyethylene Glycol 3350 17 GM Packet PO SCH (08:30)
[2022-11-03] MEDS: Multivitamin W/ Minerals 1 TAB PO SCH (08:30)
[2022-11-03] MEDS: Senokot S 8.6-50 MG TAB PO SCH ×2 (08:30→22:19)
[2022-11-03] MEDS: Lantiseptic Ointment 130 GM JAR TOP SCH ×2 (08:33→22:19)
[2022-11-03] MEDS: Ondansetron ODT 4 MG TAB PO PRN (08:56)
[2022-11-03] MEDS: Amino Acids 4.25 %/Dextrose 5% 2,000 ML IV SCH (14:45)
[2022-11-03] MEDS: traMADol HCl 50 MG TAB PO PRN (17:52)
[2022-11-03] MEDS: Tamsulosin HCl 0.4 MG CAP PO SCH (21:58)
[2022-11-04] MEDS: Acetaminophen 325 MG TAB PO PRN (00:31)
[2022-11-04] MEDS: traMADol HCl 50 MG TAB PO PRN (00:32)
[2022-11-04] MEDS: Ferrous Gluconate 324 MG TAB PO SCH ×2 (08:31→21:19)
[2022-11-04] MEDS: Simvastatin 20 MG TAB PO SCH (08:31)
[2022-11-04] MEDS: Senokot S 8.6-50 MG TAB PO SCH ×2 (08:32→21:18)
[2022-11-04] MEDS: Multivitamin W/ Minerals 1 TAB PO SCH (08:32)
[2022-11-04] MEDS: Polyethylene Glycol 3350 17 GM Packet PO SCH (08:32)
[2022-11-04] MEDS: Lantiseptic Ointment 130 GM JAR TOP SCH ×3 (08:32→21:19)
[2022-11-04] MEDS: Ondansetron ODT 4 MG TAB PO PRN (08:40)
[2022-11-04] MEDS: Ciprofloxacin 500 MG TAB PO SCH ×2 (10:12→21:18)
[2022-11-04] MEDS: Amiodarone 200 MG TAB PO SCH (10:16)
[2022-11-04] MEDS: Aspirin 81 mg Enteric Coated Tablet PO SCH ×2 (10:16→21:18)
[2022-11-04] MEDS ORDERED: NIRMATRELVIR 150 MG/RITONAVIR 100 MG PO SCH (10:45)
[2022-11-04] MEDS: Amino Acids 4.25 %/Dextrose 5% 2,000 ML IV SCH (12:40)
[2022-11-04] MEDS: Lidocaine-Prilocaine 2.5% Cream 5 GM TUBE TOP PRN (16:27)
[2022-11-04] MEDS ORDERED: Ascorbic Acid 500 mg Chewable Tablet PO SCH (17:00)
[2022-11-04] MEDS ORDERED: Zinc Sulfate 220 MG CAP PO SCH (17:00)
[2022-11-04] MEDS ORDERED: Cholecalciferol 1,000 UNITS (25 MCG) TAB PO SCH (17:00)
[2022-11-04] MEDS: NIRMATRELVIR 150 MG/RITONAVIR 100 MG PO SCH (21:17)
[2022-11-04] MEDS: Benzonatate 100 MG CAP PO PRN (21:18)
[2022-11-05] MEDS: Acetaminophen 325 MG TAB PO PRN (00:16)
[2022-11-05] MEDS: Multivitamin W/ Minerals 1 TAB PO SCH (08:51)
[2022-11-05] MEDS: Ondansetron ODT 4 MG TAB PO PRN ×3 (08:55→22:10)
[2022-11-05] MEDS: Aspirin 81 mg Enteric Coated Tablet PO SCH ×2 (08:56→21:52)
[2022-11-05] MEDS: NIRMATRELVIR 150 MG/RITONAVIR 100 MG PO SCH ×2 (08:56→21:54)
[2022-11-05] MEDS: Lantiseptic Ointment 130 GM JAR TOP SCH ×2 (08:56→21:53)
[2022-11-05] MEDS: Ferrous Gluconate 324 MG TAB PO SCH ×2 (08:56→21:52)
[2022-11-05] MEDS: Senokot S 8.6-50 MG TAB PO SCH (08:57)
[2022-11-05] MEDS: Polyethylene Glycol 3350 17 GM Packet PO SCH (08:57)
[2022-11-05] MEDS ORDERED: Zinc Sulfate 220 MG CAP PO SCH (09:00)
[2022-11-05] MEDS ORDERED: Ascorbic Acid 500 mg Chewable Tablet PO SCH (09:00)
[2022-11-05] MEDS ORDERED: Cholecalciferol 1,000 UNITS (25 MCG) TAB PO SCH (09:00)
[2022-11-05] MEDS: Amino Acids 4.25 %/Dextrose 5% 2,000 ML IV SCH (12:43)
[2022-11-05] MEDS ORDERED: Ciprofloxacin 500 MG TAB PO SCH (13:00)
[2022-11-05] MEDS ORDERED: Ondansetron ODT 4 MG TAB PO SCH (13:00)
[2022-11-05] MEDS ORDERED: Senokot S 8.6-50 MG TAB PO PRN (13:02)
[2022-11-05] MEDS: Ciprofloxacin 500 MG TAB PO SCH (14:36)
[2022-11-05] MEDS: Benzonatate 100 MG CAP PO PRN (21:52)
[2022-11-05] MEDS: Melatonin 3 MG TAB PO PRN (21:52)
[2022-11-06] MEDS: Aspirin 81 mg Enteric Coated Tablet PO SCH ×2 (09:04→21:47)
[2022-11-06] MEDS: Ferrous Gluconate 324 MG TAB PO SCH ×2 (09:04→21:49)
[2022-11-06] MEDS: Benzonatate 100 MG CAP PO PRN ×2 (09:04→21:47)
[2022-11-06] MEDS: NIRMATRELVIR 150 MG/RITONAVIR 100 MG PO SCH ×2 (09:06→21:55)
[2022-11-06] MEDS: Lantiseptic Ointment 130 GM JAR TOP SCH ×2 (09:18→21:47)
[2022-11-06] MEDS: Ondansetron ODT 4 MG TAB PO PRN (12:04)
[2022-11-06] MEDS: Zinc Sulfate 220 MG CAP PO SCH ×2 (12:04→12:25)
[2022-11-06] MEDS: Cholecalciferol 1,000 UNITS (25 MCG) TAB PO SCH ×2 (12:05→12:25)
[2022-11-06] MEDS: Ascorbic Acid 500 mg Chewable Tablet PO SCH ×2 (12:06→12:15)
[2022-11-06] MEDS: Amino Acids 4.25 %/Dextrose 5% 2,000 ML IV SCH (12:16)
[2022-11-06] MEDS: Melatonin 3 MG TAB PO PRN (21:49)
[2022-11-07] MEDS: Aspirin 81 mg Enteric Coated Tablet PO SCH ×2 (09:43→22:08)
[2022-11-07] MEDS: Ferrous Gluconate 324 MG TAB PO SCH ×2 (09:43→22:08)
[2022-11-07] MEDS: Lantiseptic Ointment 130 GM JAR TOP SCH ×2 (09:44→22:08)
[2022-11-07] MEDS: NIRMATRELVIR 150 MG/RITONAVIR 100 MG PO SCH ×2 (09:53→22:15)
[2022-11-07] MEDS: Cholecalciferol 1,000 UNITS (25 MCG) TAB PO SCH (12:19)
[2022-11-07] MEDS: Ascorbic Acid 500 mg Chewable Tablet PO SCH (12:19)
[2022-11-07] MEDS: Zinc Sulfate 220 MG CAP PO SCH (12:19)
[2022-11-07] MEDS: Amino Acids 4.25 %/Dextrose 5% 2,000 ML IV SCH (12:20)
[2022-11-07] MEDS: Ondansetron ODT 4 MG TAB PO PRN ×2 (12:28→22:12)
[2022-11-07 14:31] LABS: #Basophils 0.1 thou/uL (0.0-0.2); #Eosinphils 0.3 thou/uL (0.0-0.7); #Lymphocytes 1.2 thou/uL (1.20-3.40); #Neutrophils 4.5 thou/uL (1.40-6.50); %Eosinophils 3.9 % (0.0-10.0); %Lymphocytes 16.4 % (21.0-51.0); %Neutrophils 64.7 % (42.0-75.0); Hemoglobin 10.9 g/dL (14.0-18.0); Mean Corpuscular HGB CONC 34.8 g/dL (32.0-36.0); Mean Corpuscular Hemoglobin 33.5 pg (27.0-31.0); Mean Corpuscular Volume 96.4 fl (78.0-98.0); Mean Platelet Volume 7.5 fL (7.4-10.4); Platelet Count 188 10x3/uL (130-400); RBC Distribution Width 11.3 % (11.5-14.5); Red Blood Cell (RBC) Count 3.24 mill/uL (4.70-6.10)
[2022-11-07 15:48] LABS: Anion Gap 13 mmol/L (10-20); BUN (Urea Nitrogen) 30 mg/dL (8.4-25.7); Calc. Creatinine Clearance 102 mL/min (70-130); Calcium 8.4 mg/dL (7.8-10.44); Carbon Dioxide 20 mmol/L (23-31); Chloride 98 mmol/L (98-107); Estimated GFR 88; Glucose 106 mg/dL (83-110); Potassium 4.3 mmol/L (3.5-5.1); Sodium 127 mmol/L (136-145)
[2022-11-07] MEDS: Meclizine HCl 25 MG TAB PO PRN (17:18)
[2022-11-07] MEDS: Benzonatate 100 MG CAP PO PRN (22:09)
[2022-11-08] MEDS: Aspirin 81 mg Enteric Coated Tablet PO SCH ×3 (08:33→20:48)
[2022-11-08] MEDS: Ondansetron ODT 4 MG TAB PO PRN ×2 (08:33→22:14)
[2022-11-08] MEDS: NIRMATRELVIR 150 MG/RITONAVIR 100 MG PO SCH ×3 (08:34→20:48)
[2022-11-08] MEDS: Ferrous Gluconate 324 MG TAB PO SCH ×3 (08:34→20:48)
[2022-11-08] MEDS: Benzonatate 100 MG CAP PO PRN ×2 (08:36→20:48)
[2022-11-08] MEDS: Lantiseptic Ointment 130 GM JAR TOP SCH ×2 (11:02→20:51)
[2022-11-08] MEDS: Zinc Sulfate 220 MG CAP PO SCH (11:05)
[2022-11-08] MEDS: Cholecalciferol 1,000 UNITS (25 MCG) TAB PO SCH (11:05)
[2022-11-08] MEDS: Ascorbic Acid 500 mg Chewable Tablet PO SCH (11:05)
[2022-11-08] MEDS: Amino Acids 4.25 %/Dextrose 5% 2,000 ML IV SCH (14:29)
[2022-11-08] MEDS: Sodium Chloride 1 GM TAB PO SCH (14:32)
[2022-11-09] MEDS: Ferrous Gluconate 324 MG TAB PO SCH ×2 (09:19→21:27)
[2022-11-09] MEDS: Meclizine HCl 25 MG TAB PO PRN (09:19)
[2022-11-09] MEDS: Aspirin 81 mg Enteric Coated Tablet PO SCH ×2 (09:20→21:27)
[2022-11-09] MEDS: Amiodarone 200 MG TAB PO SCH (09:20)
[2022-11-09] MEDS: Lantiseptic Ointment 130 GM JAR TOP SCH ×2 (09:20→21:29)
[2022-11-09] MEDS: Ascorbic Acid 500 mg Chewable Tablet PO SCH (12:01)
[2022-11-09] MEDS: Ondansetron ODT 4 MG TAB PO PRN (12:01)
[2022-11-09] MEDS: Cholecalciferol 1,000 UNITS (25 MCG) TAB PO SCH (12:01)
[2022-11-09] MEDS: Zinc Sulfate 220 MG CAP PO SCH (12:01)
[2022-11-09] MEDS: Sodium Chloride 1 GM TAB PO SCH (12:03)
[2022-11-09] MEDS: Amino Acids 4.25 %/Dextrose 5% 2,000 ML IV SCH (14:04)
[2022-11-09] MEDS: Simvastatin 20 MG TAB PO SCH (21:27)
[2022-11-09] MEDS: Tamsulosin HCl 0.4 MG CAP PO SCH (21:27)
[2022-11-10] MEDS: Ferrous Gluconate 324 MG TAB PO SCH ×2 (09:33→21:47)
[2022-11-10] MEDS: Aspirin 81 mg Enteric Coated Tablet PO SCH ×2 (09:33→21:47)
[2022-11-10] MEDS: Lantiseptic Ointment 130 GM JAR TOP SCH ×2 (09:33→21:47)
[2022-11-10] MEDS: Amiodarone 200 MG TAB PO SCH (09:33)
[2022-11-10] MEDS: Zinc Sulfate 220 MG CAP PO SCH (11:46)
[2022-11-10] MEDS: Ascorbic Acid 500 mg Chewable Tablet PO SCH (11:46)
[2022-11-10] MEDS: Cholecalciferol 1,000 UNITS (25 MCG) TAB PO SCH (11:46)
[2022-11-10] MEDS: Sodium Chloride 1 GM TAB PO SCH (11:47)
[2022-11-10] MEDS: Amino Acids 4.25 %/Dextrose 5% 2,000 ML IV SCH (11:48)
[2022-11-10] MEDS: Simvastatin 20 MG TAB PO SCH (21:47)
[2022-11-10] MEDS: Tamsulosin HCl 0.4 MG CAP PO SCH (21:47)
[2022-11-11] MEDS: Ondansetron ODT 4 MG TAB PO PRN (08:49)
[2022-11-11] MEDS: Amiodarone 200 MG TAB PO SCH (08:49)
[2022-11-11] MEDS: Lantiseptic Ointment 130 GM JAR TOP SCH ×2 (08:49→21:58)
[2022-11-11] MEDS: Aspirin 81 mg Enteric Coated Tablet PO SCH ×2 (08:49→22:00)
[2022-11-11] MEDS: Ferrous Gluconate 324 MG TAB PO SCH ×2 (08:49→21:59)
[2022-11-11] MEDS: Ascorbic Acid 500 mg Chewable Tablet PO SCH (11:50)
[2022-11-11] MEDS: Cholecalciferol 1,000 UNITS (25 MCG) TAB PO SCH (11:50)
[2022-11-11] MEDS: Zinc Sulfate 220 MG CAP PO SCH (11:50)
[2022-11-11] MEDS: Sodium Chloride 1 GM TAB PO SCH (11:50)
[2022-11-11] MEDS: Amino Acids 4.25 %/Dextrose 5% 2,000 ML IV SCH (11:50)
[2022-11-11] MEDS: Tamsulosin HCl 0.4 MG CAP PO SCH (21:58)
[2022-11-11] MEDS: Simvastatin 20 MG TAB PO SCH (21:59)
[2022-11-12] MEDS: Ferrous Gluconate 324 MG TAB PO SCH ×2 (08:45→22:13)
[2022-11-12] MEDS: Amiodarone 200 MG TAB PO SCH (08:45)
[2022-11-12] MEDS: Ondansetron ODT 4 MG TAB PO PRN (08:46)
[2022-11-12] MEDS: Aspirin 81 mg Enteric Coated Tablet PO SCH ×2 (08:46→22:14)
[2022-11-12] MEDS: Lantiseptic Ointment 130 GM JAR TOP SCH ×2 (08:47→22:15)
[2022-11-12] MEDS: Ascorbic Acid 500 mg Chewable Tablet PO SCH (12:13)
[2022-11-12] MEDS: Zinc Sulfate 220 MG CAP PO SCH (12:14)
[2022-11-12] MEDS: Sodium Chloride 1 GM TAB PO SCH (12:14)
[2022-11-12] MEDS: Cholecalciferol 1,000 UNITS (25 MCG) TAB PO SCH (12:14)
[2022-11-12] MEDS: Amino Acids 4.25 %/Dextrose 5% 2,000 ML IV SCH (12:15)
[2022-11-12] MEDS: Tamsulosin HCl 0.4 MG CAP PO SCH (22:13)
[2022-11-12] MEDS: Simvastatin 20 MG TAB PO SCH (22:14)
[2022-11-13] MEDS: Aspirin 81 mg Enteric Coated Tablet PO SCH ×2 (08:39→20:17)
[2022-11-13] MEDS: Amiodarone 200 MG TAB PO SCH (08:39)
[2022-11-13] MEDS: Ferrous Gluconate 324 MG TAB PO SCH ×2 (08:40→20:17)
[2022-11-13] MEDS: Lantiseptic Ointment 130 GM JAR TOP SCH ×2 (08:41→20:19)
[2022-11-13] MEDS: Amino Acids 4.25 %/Dextrose 5% 2,000 ML IV SCH (11:38)
[2022-11-13] MEDS: Ondansetron ODT 4 MG TAB PO PRN (11:39)
[2022-11-13] MEDS: Cholecalciferol 1,000 UNITS (25 MCG) TAB PO SCH (11:57)
[2022-11-13] MEDS: Zinc Sulfate 220 MG CAP PO SCH (11:57)
[2022-11-13] MEDS: Ascorbic Acid 500 mg Chewable Tablet PO SCH (11:57)
[2022-11-13] MEDS: Sodium Chloride 1 GM TAB PO SCH (11:57)
[2022-11-13 17:02] LABS: SARS-CoV-2 NAA Rapid Test DETECTED (NotDetected)
[2022-11-13] MEDS: Tamsulosin HCl 0.4 MG CAP PO SCH (20:18)
[2022-11-13] MEDS: Simvastatin 20 MG TAB PO SCH (20:18)
[2022-11-14] MEDS: Amiodarone 200 MG TAB PO SCH (08:50)
[2022-11-14] MEDS: Aspirin 81 mg Enteric Coated Tablet PO SCH ×2 (08:50→22:25)
[2022-11-14] MEDS: Lantiseptic Ointment 130 GM JAR TOP SCH ×2 (08:52→21:15)
[2022-11-14] MEDS: Ferrous Gluconate 324 MG TAB PO SCH ×2 (08:52→22:25)
[2022-11-14] MEDS: Amino Acids 4.25 %/Dextrose 5% 2,000 ML IV SCH (10:05)
[2022-11-14] MEDS: Ascorbic Acid 500 mg Chewable Tablet PO SCH (13:00)
[2022-11-14] MEDS: Cholecalciferol 1,000 UNITS (25 MCG) TAB PO SCH (13:20)
[2022-11-14] MEDS: Sodium Chloride 1 GM TAB PO SCH (13:20)
[2022-11-14] MEDS: Zinc Sulfate 220 MG CAP PO SCH (13:21)
[2022-11-14] MEDS: Simvastatin 20 MG TAB PO SCH (22:26)
[2022-11-14] MEDS: Tamsulosin HCl 0.4 MG CAP PO SCH (22:26)
[2022-11-15] MEDS: Amiodarone 200 MG TAB PO SCH (09:41)
[2022-11-15] MEDS: Ferrous Gluconate 324 MG TAB PO SCH ×2 (09:41→21:05)
[2022-11-15] MEDS: Ascorbic Acid 500 mg Chewable Tablet PO SCH (09:41)
[2022-11-15] MEDS: Aspirin 81 mg Enteric Coated Tablet PO SCH ×2 (09:41→21:02)
[2022-11-15] MEDS: Lantiseptic Ointment 130 GM JAR TOP SCH ×2 (09:42→21:05)
[2022-11-15] MEDS: Ondansetron ODT 4 MG TAB PO PRN (12:23)
[2022-11-15] MEDS: Cholecalciferol 1,000 UNITS (25 MCG) TAB PO SCH (12:27)
[2022-11-15] MEDS: Sodium Chloride 1 GM TAB PO SCH (12:27)
[2022-11-15] MEDS: Zinc Sulfate 220 MG CAP PO SCH (12:27)
[2022-11-15] MEDS: Amino Acids 4.25 %/Dextrose 5% 2,000 ML IV SCH (14:14)
[2022-11-15] MEDS: Simvastatin 20 MG TAB PO SCH (21:05)
[2022-11-15] MEDS: Tamsulosin HCl 0.4 MG CAP PO SCH (21:06)
[2022-11-16] MEDS: Amiodarone 200 MG TAB PO SCH (09:09)
[2022-11-16] MEDS: Ferrous Gluconate 324 MG TAB PO SCH ×2 (09:10→21:45)
[2022-11-16] MEDS: Aspirin 81 mg Enteric Coated Tablet PO SCH ×2 (09:10→21:45)
[2022-11-16] MEDS: Lantiseptic Ointment 130 GM JAR TOP SCH ×2 (10:15→21:55)
[2022-11-16] MEDS: Amino Acids 4.25 %/Dextrose 5% 2,000 ML IV SCH (12:08)
[2022-11-16] MEDS: Ascorbic Acid 500 mg Chewable Tablet PO SCH (13:13)
[2022-11-16] MEDS: Cholecalciferol 1,000 UNITS (25 MCG) TAB PO SCH (13:14)
[2022-11-16] MEDS: Sodium Chloride 1 GM TAB PO SCH (13:14)
[2022-11-16] MEDS: Zinc Sulfate 220 MG CAP PO SCH (13:15)
[2022-11-16] MEDS: Acetaminophen/Codeine 30-300mg Tablet PO PRN (16:19)
[2022-11-16] MEDS: Tamsulosin HCl 0.4 MG CAP PO SCH (21:45)
[2022-11-16] MEDS: Simvastatin 20 MG TAB PO SCH (21:46)
[2022-11-17] MEDS: Amiodarone 200 MG TAB PO SCH (08:51)
[2022-11-17] MEDS: Lantiseptic Ointment 130 GM JAR TOP SCH (08:52)
[2022-11-17] MEDS: Aspirin 81 mg Enteric Coated Tablet PO SCH ×2 (08:52→20:21)
[2022-11-17] MEDS: Ferrous Gluconate 324 MG TAB PO SCH ×2 (08:52→20:21)
[2022-11-17] MEDS: Amino Acids 4.25 %/Dextrose 5% 2,000 ML IV SCH (10:56)
[2022-11-17] MEDS: Sodium Chloride 1 GM TAB PO SCH (13:08)
[2022-11-17] MEDS: Ascorbic Acid 500 mg Chewable Tablet PO SCH (13:08)
[2022-11-17] MEDS: Cholecalciferol 1,000 UNITS (25 MCG) TAB PO SCH (13:08)
[2022-11-17] MEDS: Zinc Sulfate 220 MG CAP PO SCH (13:09)
[2022-11-17] MEDS: Simvastatin 20 MG TAB PO SCH (20:21)
[2022-11-17] MEDS: Tamsulosin HCl 0.4 MG CAP PO SCH (20:21)
[2022-11-18] MEDS: Lantiseptic Ointment 130 GM JAR TOP SCH ×3 (01:37→20:13)
[2022-11-18] MEDS: Ondansetron ODT 4 MG TAB PO PRN (08:45)
[2022-11-18] MEDS: Amiodarone 200 MG TAB PO SCH (08:45)
[2022-11-18] MEDS: Aspirin 81 mg Enteric Coated Tablet PO SCH ×2 (08:54→20:13)
[2022-11-18] MEDS: Ferrous Gluconate 324 MG TAB PO SCH ×2 (08:54→20:13)
[2022-11-18] MEDS: Amino Acids 4.25 %/Dextrose 5% 2,000 ML IV SCH (11:36)
[2022-11-18] MEDS: Sodium Chloride 1 GM TAB PO SCH (11:51)
[2022-11-18] MEDS: Zinc Sulfate 220 MG CAP PO SCH (11:51)
[2022-11-18] MEDS: Cholecalciferol 1,000 UNITS (25 MCG) TAB PO SCH (11:51)
[2022-11-18] MEDS: Ascorbic Acid 500 mg Chewable Tablet PO SCH (11:51)
[2022-11-18] MEDS: Simvastatin 20 MG TAB PO SCH (20:13)
[2022-11-18] MEDS: Tamsulosin HCl 0.4 MG CAP PO SCH (20:13)
[2022-11-19 05:21] LABS: #Basophils 0.1 thou/uL (0.0-0.2); #Eosinphils 0.2 thou/uL (0.0-0.7); #Lymphocytes 1.6 thou/uL (1.20-3.40); #Monocytes 0.6 thou/uL (0.11-0.59); #Neutrophils 4.5 thou/uL (1.40-6.50); %Basophils 0.8 % (0.0-1.0); %Eosinophils 2.8 % (0.0-10.0); %Monocytes 8.5 % (0.0-10.0); %Neutrophils 64.9 % (42.0-75.0); Hemoglobin 10.2 g/dL (14.0-18.0); Mean Corpuscular Hemoglobin 33.5 pg (27.0-31.0); Mean Corpuscular Volume 95.8 fl (78.0-98.0); Mean Platelet Volume 6.9 fL (7.4-10.4); Platelet Count 178 10x3/uL (130-400); RBC Distribution Width 11.4 % (11.5-14.5); Red Blood Cell (RBC) Count 3.06 mill/uL (4.70-6.10); White Blood Cell (WBC) Count 6.9 10x3/uL (4.8-10.8)
[2022-11-19 05:41] LABS: ALT (SGPT) 18 U/L (8-55); AST (SGOT) 19 U/L (5-34); Albumin 2.8 g/dL (3.4-4.8); Alkaline Phosphatase 131 U/L (40-110); Anion Gap 11 mmol/L (10-20); BUN (Urea Nitrogen) 33 mg/dL (8.4-25.7); Bilirubin, Total 0.6 mg/dL (0.2-1.2); Calc. Creatinine Clearance 89 mL/min (70-130); Calcium 8.7 mg/dL (7.8-10.44); Carbon Dioxide 17 mmol/L (23-31); Chloride 104 mmol/L (98-107); Estimated GFR 86; Globulin 3.3 g/dL (2.4-3.5); Glucose 105 mg/dL (83-110); Protein, Total 6.1 g/dL (5.8-8.1); Sodium 128 mmol/L (136-145)
[2022-11-19] MEDS: Amiodarone 200 MG TAB PO SCH (08:54)
[2022-11-19] MEDS: Ferrous Gluconate 324 MG TAB PO SCH ×2 (08:56→21:04)
[2022-11-19] MEDS: Lantiseptic Ointment 130 GM JAR TOP SCH ×2 (08:56→21:04)
[2022-11-19] MEDS: Aspirin 81 mg Enteric Coated Tablet PO SCH ×2 (08:56→21:01)
[2022-11-19] MEDS: Amino Acids 4.25 %/Dextrose 5% 2,000 ML IV SCH (10:31)
[2022-11-19] MEDS: Sodium Chloride 1 GM TAB PO SCH (12:13)
[2022-11-19] MEDS: Zinc Sulfate 220 MG CAP PO SCH (12:13)
[2022-11-19] MEDS: Cholecalciferol 1,000 UNITS (25 MCG) TAB PO SCH (12:13)
[2022-11-19] MEDS: Ascorbic Acid 500 mg Chewable Tablet PO SCH (12:13)
[2022-11-19] MEDS: Polyethylene Glycol 3350 17 GM Packet PO SCH (12:13)
[2022-11-19] MEDS: Ondansetron ODT 4 MG TAB PO PRN (14:30)
[2022-11-19] MEDS: Tamsulosin HCl 0.4 MG CAP PO SCH (21:01)
[2022-11-19] MEDS: Simvastatin 20 MG TAB PO SCH (21:01)
[2022-11-20] MEDS: Polyethylene Glycol 3350 17 GM Packet PO SCH (08:21)
[2022-11-20] MEDS: Amiodarone 200 MG TAB PO SCH (08:21)
[2022-11-20] MEDS: Ferrous Gluconate 324 MG TAB PO SCH ×2 (09:07→22:35)
[2022-11-20] MEDS: Lantiseptic Ointment 130 GM JAR TOP SCH ×2 (09:07→22:36)
[2022-11-20] MEDS: Aspirin 81 mg Enteric Coated Tablet PO SCH ×2 (09:07→22:35)
[2022-11-20] MEDS: Cholecalciferol 1,000 UNITS (25 MCG) TAB PO SCH (12:34)
[2022-11-20] MEDS: Ascorbic Acid 500 mg Chewable Tablet PO SCH (12:34)
[2022-11-20] MEDS: Sodium Chloride 1 GM TAB PO SCH (12:34)
[2022-11-20] MEDS: Zinc Sulfate 220 MG CAP PO SCH (12:35)
[2022-11-20] MEDS: Amino Acids 4.25 %/Dextrose 5% 2,000 ML IV SCH (13:31)
[2022-11-20] MEDS: Simvastatin 20 MG TAB PO SCH (22:35)
[2022-11-20] MEDS: Tamsulosin HCl 0.4 MG CAP PO SCH (22:36)
[2022-11-21] MEDS: Ondansetron ODT 4 MG TAB PO PRN (01:37)
[2022-11-21] MEDS: Aspirin 81 mg Enteric Coated Tablet PO SCH ×2 (09:44→19:04)
[2022-11-21] MEDS: Amiodarone 200 MG TAB PO SCH (09:44)
[2022-11-21] MEDS: Lantiseptic Ointment 130 GM JAR TOP SCH ×2 (09:46→20:27)
[2022-11-21] MEDS: Polyethylene Glycol 3350 17 GM Packet PO SCH (09:46)
[2022-11-21] MEDS: Ferrous Gluconate 324 MG TAB PO SCH ×2 (09:46→20:27)
[2022-11-21] MEDS: Zinc Sulfate 220 MG CAP PO SCH (12:38)
[2022-11-21] MEDS: Ascorbic Acid 500 mg Chewable Tablet PO SCH (12:38)
[2022-11-21] MEDS: Sodium Chloride 1 GM TAB PO SCH (12:38)
[2022-11-21] MEDS: Cholecalciferol 1,000 UNITS (25 MCG) TAB PO SCH (12:38)
[2022-11-21] MEDS: Amino Acids 4.25 %/Dextrose 5% 2,000 ML IV SCH (16:53)
[2022-11-21] MEDS: Simvastatin 20 MG TAB PO SCH (20:26)
[2022-11-21] MEDS: Tamsulosin HCl 0.4 MG CAP PO SCH (20:26)
[2022-11-22] MEDS ORDERED: Amino Acids 4.25 %/Dextrose 5% 2,000 ML IV SCH (04:00)
[2022-11-22] MEDS: Ferrous Gluconate 324 MG TAB PO SCH ×2 (08:31→20:24)
[2022-11-22] MEDS: Amiodarone 200 MG TAB PO SCH (08:31)
[2022-11-22] MEDS: Aspirin 81 mg Enteric Coated Tablet PO SCH (08:32)
[2022-11-22] MEDS: Lantiseptic Ointment 130 GM JAR TOP SCH ×2 (08:32→20:24)
[2022-11-22] MEDS: Polyethylene Glycol 3350 17 GM Packet PO SCH (08:33)
[2022-11-22] MEDS: Ascorbic Acid 500 mg Chewable Tablet PO SCH (13:45)
[2022-11-22] MEDS: Sodium Chloride 1 GM TAB PO SCH (13:46)
[2022-11-22] MEDS: Cholecalciferol 1,000 UNITS (25 MCG) TAB PO SCH (13:46)
[2022-11-22] MEDS: Zinc Sulfate 220 MG CAP PO SCH (13:46)
[2022-11-22] MEDS: Simvastatin 20 MG TAB PO SCH (20:25)
[2022-11-22] MEDS: Tamsulosin HCl 0.4 MG CAP PO SCH (20:25)
[2022-11-23] MEDS: Amiodarone 200 MG TAB PO SCH (08:42)
[2022-11-23] MEDS: Polyethylene Glycol 3350 17 GM Packet PO SCH (08:43)
[2022-11-23] MEDS: Ferrous Gluconate 324 MG TAB PO SCH ×2 (08:43→20:39)
[2022-11-23] MEDS: Lantiseptic Ointment 130 GM JAR TOP SCH ×2 (08:44→20:39)
[2022-11-23] MEDS: Cholecalciferol 1,000 UNITS (25 MCG) TAB PO SCH (12:19)
[2022-11-23] MEDS: Sodium Chloride 1 GM TAB PO SCH (12:19)
[2022-11-23] MEDS: Ascorbic Acid 500 mg Chewable Tablet PO SCH (12:19)
[2022-11-23] MEDS: Zinc Sulfate 220 MG CAP PO SCH (12:19)
[2022-11-23] MEDS: Ondansetron ODT 4 MG TAB PO PRN (13:43)
[2022-11-23] MEDS: Tamsulosin HCl 0.4 MG CAP PO SCH (20:37)
[2022-11-23] MEDS: Simvastatin 20 MG TAB PO SCH (20:39)
[2022-11-24] MEDS: Amiodarone 200 MG TAB PO SCH (10:06)
[2022-11-24] MEDS: Lantiseptic Ointment 130 GM JAR TOP SCH ×2 (10:08→20:03)
[2022-11-24] MEDS: Ferrous Gluconate 324 MG TAB PO SCH ×2 (10:08→20:04)
[2022-11-24] MEDS: Polyethylene Glycol 3350 17 GM Packet PO SCH (10:08)
[2022-11-24 10:13] LABS: Bilirubin Negative (Negative); Blood, Urine Large (Negative); Clarity Slightly Cloudy (Clear); Glucose, Urine (Dipstick) Negative (Negative); Ketone, Urine Negative (Negative); Leukocyte Large (Negative); Nitrite Positive (Negative); Protein, Urine (Dipstick) > or equal to 300 mg/dL (Neg-Trace); Specific Gravity, Urine 1.025 (1.005-1.030); pH, Urine 6.5 (5.0-9.0)
[2022-11-24 10:19] LABS: Bacteria/HPF 4+ HPF (None Seen); RBC/HPF Greater than 50 HPF (0-3); Squamous Epithelial 0-3 HPF (0-3); WBC/HPF Greater Than 50 HPF (0-3)
[2022-11-24] MEDS: Phenazopyridine HCl 95 MG TAB PO SCH ×3 (10:59→23:46)
[2022-11-24] MEDS: Nitrofurantoin Monohyd/M-Cryst 100 MG CAP PO SCH ×2 (10:59→23:57)
[2022-11-24] MEDS: Ascorbic Acid 500 mg Chewable Tablet PO SCH (13:11)
[2022-11-24] MEDS: Ondansetron ODT 4 MG TAB PO PRN (13:11)
[2022-11-24] MEDS: Cholecalciferol 1,000 UNITS (25 MCG) TAB PO SCH (13:11)
[2022-11-24] MEDS: Sodium Chloride 1 GM TAB PO SCH (13:11)
[2022-11-24] MEDS: Zinc Sulfate 220 MG CAP PO SCH (13:12)
[2022-11-24] MEDS: Tamsulosin HCl 0.4 MG CAP PO SCH (20:00)
[2022-11-24] MEDS: Simvastatin 20 MG TAB PO SCH (20:04)
[2022-11-24] MEDS ORDERED: Nitrofurantoin Monohyd/M-Cryst 100 MG CAP PO SCH (23:00)
[2022-11-25] MEDS: Nitrofurantoin Monohyd/M-Cryst 100 MG CAP PO SCH ×2 (08:46→21:01)
[2022-11-25] MEDS: Amiodarone 200 MG TAB PO SCH (08:46)
[2022-11-25] MEDS: Ondansetron ODT 4 MG TAB PO PRN (08:46)
[2022-11-25] MEDS: Lantiseptic Ointment 130 GM JAR TOP SCH ×2 (08:47→21:06)
[2022-11-25] MEDS: Polyethylene Glycol 3350 17 GM Packet PO SCH (08:48)
[2022-11-25] MEDS ORDERED: Phenazopyridine HCl 95 MG TAB ONE (08:48)
[2022-11-25] MEDS: Ferrous Gluconate 324 MG TAB PO SCH ×2 (08:48→21:02)
[2022-11-25] MEDS: Phenazopyridine HCl 95 MG TAB PO SCH ×3 (08:50→21:01)
[2022-11-25] MEDS: Ascorbic Acid 500 mg Chewable Tablet PO SCH (12:01)
[2022-11-25] MEDS: Cholecalciferol 1,000 UNITS (25 MCG) TAB PO SCH (12:02)
[2022-11-25] MEDS: Sodium Chloride 1 GM TAB PO SCH (12:02)
[2022-11-25] MEDS: Zinc Sulfate 220 MG CAP PO SCH (12:03)
[2022-11-25] MEDS: Tamsulosin HCl 0.4 MG CAP PO SCH (21:01)
[2022-11-25] MEDS: Simvastatin 20 MG TAB PO SCH (21:03)
[2022-11-25 23:33] VITALS: TEMP 97.8
[2022-11-26 06:02] VITALS: BMI 24.9
[2022-11-26 07:38] VITALS: BP 125/71
[2022-11-26] MEDS: Nitrofurantoin Monohyd/M-Cryst 100 MG CAP PO SCH (08:00)
[2022-11-26] MEDS: Lantiseptic Ointment 130 GM JAR TOP SCH (08:00)
[2022-11-26] MEDS: Ferrous Gluconate 324 MG TAB PO SCH (08:00)
[2022-11-26] MEDS: Polyethylene Glycol 3350 17 GM Packet PO SCH (08:00)
[2022-11-26] MEDS: Amiodarone 200 MG TAB PO SCH (08:01)
[2022-11-26] MEDS ORDERED: Phenazopyridine HCl 95 MG TAB ONE (08:18)
[2022-11-26] MEDS: Phenazopyridine HCl 95 MG TAB PO SCH (10:58)
== END 2022-11-26 11:35 | disposition home health service (06) | DRG 559 ==
LOC: MADMS 15:05
PROVIDERS: ADMIT Family Medicine; ATTEND Family Medicine
PROC: 8E0ZXY6 Isolation (ICD-10-PCS; principal; 2022-11-03)
DX: Z47.1 Aftercare following joint replacement surgery (principal); U07.1 COVID-19; C15.9 Malignant neoplasm of esophagus, unspecified; C78.7 Secondary malignant neoplasm of liver and intrahepatic bile duct; N39.0 Urinary tract infection, site not specified; I10 Essential (primary) hypertension; R53.81 Other malaise; I48.0 Paroxysmal atrial fibrillation; G89.29 Other chronic pain; R13.19 Other dysphagia; K59.00 Constipation, unspecified; B96.1 Klebsiella pneumoniae [K. pneumoniae] as the cause of diseases classified elsewhere; R53.1 Weakness; M54.9 Dorsalgia, unspecified; M25.512 Pain in left shoulder; Z87.891 Personal history of nicotine dependence; Z79.899 Other long term (current) drug therapy; Z79.82 Long term (current) use of aspirin; Z95.0 Presence of cardiac pacemaker
CPT/HCPCS: 36415; 74019; 80048; 80053; 81001; 85025; 87077; 87086; 87186; 87811; Q0162; U0002; U0003; U0005

== ENCOUNTER 2023-02-04 14:36 | Inpatient (IN) | payer MEDICARE, BC ==
[2023-02-04] MEDS ORDERED: Atropine Sulfate 1% Ophth Soln 5 ml Bottle PO PRN (17:33)
[2023-02-04] MEDS ORDERED: Lantiseptic Ointment 130 GM JAR TOP PRN (17:45)
[2023-02-04] MEDS ORDERED: VANCOMYCIN IVPB PRN (18:52)
[2023-02-04] MEDS: Tamsulosin HCl 0.4 MG CAP PO SCH (21:12)
[2023-02-04] MEDS: Melatonin 3 MG TAB PO PRN (21:12)
[2023-02-04] MEDS: Senokot S 8.6-50 MG TAB PO SCH (21:12)
[2023-02-04 22:18] LABS: Vancomycin, Trough 16.3 ug/mL
[2023-02-04] MEDS ORDERED: Vancomycin HCl 750 MG VIAL IVPB SCH (23:00)
[2023-02-04] MEDS: Vancomycin HCl 750 MG in Sodium Chloride 0.9% 250 ML 250 ML IVPB SCH (23:35)
[2023-02-05] MEDS: Multivit, Therapeutic 1 TAB PO SCH (08:38)
[2023-02-05] MEDS: Ferrous Gluconate 324 MG TAB PO SCH ×2 (08:38→17:39)
[2023-02-05] MEDS: Polyethylene Glycol 3350 17 GM Packet PO SCH (08:39)
[2023-02-05] MEDS: Senokot S 8.6-50 MG TAB PO SCH ×2 (08:39→20:04)
[2023-02-05] MEDS: Amiodarone 200 MG TAB PO SCH (08:39)
[2023-02-05] MEDS ORDERED: Saccharomyces boulardii 250 MG CAP PO SCH (09:45)
[2023-02-05] MEDS: Vancomycin HCl 750 MG in Sodium Chloride 0.9% 250 ML 250 ML IVPB SCH ×2 (11:58→23:58)
[2023-02-05] MEDS: Tamsulosin HCl 0.4 MG CAP PO SCH (20:04)
[2023-02-05] MEDS: Melatonin 3 MG TAB PO PRN (20:05)
[2023-02-05] MEDS: Mag-Al Plus 1200 MG/1200 MG/120 MG/30 ML UDCUP PO PRN (20:40)
[2023-02-06 07:09] LABS: #Basophils 0.1 thou/uL (0.0-0.2); #Eosinphils 0.3 thou/uL (0.0-0.7); #Lymphocytes 1.2 thou/uL (1.20-3.40); #Monocytes 1.1 thou/uL (0.11-0.59); #Neutrophils 9.5 thou/uL (1.40-6.50); %Basophils 0.6 % (0.0-1.0); %Eosinophils 2.7 % (0.0-10.0); %Lymphocytes 9.8 % (21.0-51.0); %Monocytes 8.9 % (0.0-10.0); Hemoglobin 8.9 g/dL (14.0-18.0); Mean Corpuscular Hemoglobin 30.5 pg (27.0-31.0); Mean Corpuscular Volume 89.5 fl (78.0-98.0); Mean Platelet Volume 6.7 fL (7.4-10.4); Platelet Count 246 10x3/uL (130-400); RBC Distribution Width 13.1 % (11.5-14.5); Red Blood Cell (RBC) Count 2.93 mill/uL (4.70-6.10); White Blood Cell (WBC) Count 12.2 10x3/uL (4.8-10.8)
[2023-02-06 07:23] LABS: Anion Gap 11 mmol/L (10-20); BUN (Urea Nitrogen) 15 mg/dL (8.4-25.7); Calc. Creatinine Clearance 83 mL/min (70-130); Calcium 8.1 mg/dL (7.8-10.44); Carbon Dioxide 25 mmol/L (23-31); Chloride 104 mmol/L (98-107); Estimated GFR 85; Glucose 106 mg/dL (83-110); Potassium 3.7 mmol/L (3.5-5.1); Sodium 136 mmol/L (136-145)
[2023-02-06] MEDS: Amiodarone 200 MG TAB PO SCH (08:42)
[2023-02-06] MEDS: Ferrous Gluconate 324 MG TAB PO SCH ×2 (08:47→16:56)
[2023-02-06] MEDS: Polyethylene Glycol 3350 17 GM Packet PO SCH (08:48)
[2023-02-06] MEDS: Senokot S 8.6-50 MG TAB PO SCH ×2 (08:48→20:45)
[2023-02-06] MEDS: Multivit, Therapeutic 1 TAB PO SCH (08:48)
[2023-02-06] MEDS ORDERED: Saccharomyces boulardii 250 MG CAP PO SCH (09:00)
[2023-02-06] MEDS: Vancomycin HCl 750 MG in Sodium Chloride 0.9% 250 ML 250 ML IVPB SCH ×2 (11:22→22:29)
[2023-02-06] MEDS: Tamsulosin HCl 0.4 MG CAP PO SCH (20:45)
[2023-02-07] MEDS: Amiodarone 200 MG TAB PO SCH (08:55)
[2023-02-07] MEDS: Polyethylene Glycol 3350 17 GM Packet PO SCH (08:55)
[2023-02-07] MEDS: Senokot S 8.6-50 MG TAB PO SCH ×2 (08:55→20:13)
[2023-02-07] MEDS: Ferrous Gluconate 324 MG TAB PO SCH ×2 (08:56→18:37)
[2023-02-07] MEDS: Multivit, Therapeutic 1 TAB PO SCH (08:57)
[2023-02-07] MEDS: Vancomycin HCl 750 MG in Sodium Chloride 0.9% 250 ML 250 ML IVPB SCH ×2 (11:19→22:25)
[2023-02-07] MEDS: Tamsulosin HCl 0.4 MG CAP PO SCH (20:13)
[2023-02-07] MEDS: Melatonin 3 MG TAB PO PRN (22:19)
[2023-02-08] MEDS: Amiodarone 200 MG TAB PO SCH (08:22)
[2023-02-08] MEDS: Ferrous Gluconate 324 MG TAB PO SCH ×2 (08:30→17:24)
[2023-02-08] MEDS: Multivit, Therapeutic 1 TAB PO SCH (08:30)
[2023-02-08] MEDS: Polyethylene Glycol 3350 17 GM Packet PO SCH (08:31)
[2023-02-08] MEDS: Senokot S 8.6-50 MG TAB PO SCH ×2 (08:31→20:54)
[2023-02-08] MEDS: Promethazine HCl 25 MG SUPP PR PRN (09:32)
[2023-02-08 10:21] LABS: Vancomycin, Trough 21.8 ug/mL
[2023-02-08] MEDS: Vancomycin HCl 750 MG in Sodium Chloride 0.9% 250 ML 250 ML IVPB SCH (10:28)
[2023-02-08] MEDS: Tamsulosin HCl 0.4 MG CAP PO SCH (20:54)
[2023-02-08] MEDS: Melatonin 3 MG TAB PO PRN (20:54)
[2023-02-09] MEDS: Ondansetron ODT 4 MG TAB PO PRN ×2 (08:33→20:11)
[2023-02-09] MEDS: Amiodarone 200 MG TAB PO SCH (08:33)
[2023-02-09] MEDS: Polyethylene Glycol 3350 17 GM Packet PO SCH (08:34)
[2023-02-09] MEDS: Multivit, Therapeutic 1 TAB PO SCH (08:35)
[2023-02-09] MEDS: Ferrous Gluconate 324 MG TAB PO SCH ×2 (08:35→17:50)
[2023-02-09] MEDS: Senokot S 8.6-50 MG TAB PO SCH ×2 (08:35→20:07)
[2023-02-09] MEDS ORDERED: Vancomycin HCl 1.5 GM in Sodium Chloride 0.9% 250 ML 300 ML IVPB SCH (10:00)
[2023-02-09] MEDS: Vancomycin HCl 1.25 GM in Sodium Chloride 0.9% 250 ML 250 ML IVPB SCH (10:05)
[2023-02-09] MEDS: Tamsulosin HCl 0.4 MG CAP PO SCH (20:07)
[2023-02-09] MEDS: Melatonin 3 MG TAB PO PRN (20:07)
[2023-02-09] MEDS: Acetaminophen 325 MG TAB PO PRN (23:31)
[2023-02-10 05:24] LABS: #Basophils 0.1 thou/uL (0.0-0.2); #Eosinphils 0.5 thou/uL (0.0-0.7); #Lymphocytes 1.5 thou/uL (1.20-3.40); #Neutrophils 6.7 thou/uL (1.40-6.50); %Basophils 1.3 % (0.0-1.0); %Eosinophils 5.3 % (0.0-10.0); %Lymphocytes 15.5 % (21.0-51.0); %Neutrophils 67.9 % (42.0-75.0); Hemoglobin 9.4 g/dL (14.0-18.0); Mean Corpuscular Hemoglobin 30.8 pg (27.0-31.0); Mean Corpuscular Volume 90.5 fl (78.0-98.0); Mean Platelet Volume 6.7 fL (7.4-10.4); Platelet Count 264 10x3/uL (130-400); RBC Distribution Width 12.9 % (11.5-14.5); Red Blood Cell (RBC) Count 3.04 mill/uL (4.70-6.10); White Blood Cell (WBC) Count 9.8 10x3/uL (4.8-10.8)
[2023-02-10 05:39] LABS: ALT (SGPT) 11 U/L (8-55); AST (SGOT) 19 U/L (5-34); Albumin 2.4 g/dL (3.4-4.8); Alkaline Phosphatase 122 U/L (40-110); Anion Gap 11 mmol/L (10-20); BUN (Urea Nitrogen) 14 mg/dL (8.4-25.7); Bilirubin, Total 0.5 mg/dL (0.2-1.2); CRP (Inflammatory) 8.31 mg/dL (= or < 0.5); Calc. Creatinine Clearance 67 mL/min (70-130); Calcium 8.4 mg/dL (7.8-10.44); Carbon Dioxide 26 mmol/L (23-31); Chloride 102 mmol/L (98-107); Estimated GFR 70; Globulin 3.8 g/dL (2.4-3.5); Glucose 95 mg/dL (83-110); Potassium 4.4 mmol/L (3.5-5.1); Protein, Total 6.2 g/dL (5.8-8.1); Sodium 135 mmol/L (136-145)
[2023-02-10] MEDS: Amiodarone 200 MG TAB PO SCH (08:19)
[2023-02-10] MEDS: Polyethylene Glycol 3350 17 GM Packet PO SCH (08:23)
[2023-02-10] MEDS: Multivit, Therapeutic 1 TAB PO SCH (08:23)
[2023-02-10] MEDS: Ferrous Gluconate 324 MG TAB PO SCH ×2 (08:23→17:47)
[2023-02-10] MEDS: Senokot S 8.6-50 MG TAB PO SCH ×2 (08:25→21:43)
[2023-02-10] MEDS: Vancomycin HCl 1.25 GM in Sodium Chloride 0.9% 250 ML 250 ML IVPB SCH (11:18)
[2023-02-10] MEDS: Apixaban 5 MG TAB PO SCH (21:41)
[2023-02-10] MEDS: Tamsulosin HCl 0.4 MG CAP PO SCH (21:42)
[2023-02-10] MEDS: Melatonin 3 MG TAB PO PRN (21:43)
[2023-02-10] MEDS: Ondansetron ODT 4 MG TAB PO PRN (22:18)
[2023-02-11] MEDS: Ferrous Gluconate 324 MG TAB PO SCH ×2 (08:46→18:09)
[2023-02-11] MEDS: Apixaban 5 MG TAB PO SCH ×2 (08:53→21:10)
[2023-02-11] MEDS: Amiodarone 200 MG TAB PO SCH (08:53)
[2023-02-11] MEDS: Multivit, Therapeutic 1 TAB PO SCH (08:56)
[2023-02-11] MEDS: Polyethylene Glycol 3350 17 GM Packet PO SCH (08:56)
[2023-02-11] MEDS: Senokot S 8.6-50 MG TAB PO SCH ×2 (08:56→21:10)
[2023-02-11 09:21] LABS: Vancomycin, Trough 17.9 ug/mL
[2023-02-11] MEDS: Vancomycin HCl 1.25 GM in Sodium Chloride 0.9% 250 ML 250 ML IVPB SCH (10:19)
[2023-02-11] MEDS ORDERED: Vancomycin HCl 250 MG in Sodium Chloride 0.9% 100 ML IVPB SCH (11:30)
[2023-02-11] MEDS: Bisacodyl 10 MG SUPP PR PRN (18:06)
[2023-02-11] MEDS: Polyethylene Glycol 3350 17 GM Packet PO PRN (21:09)
[2023-02-11] MEDS: Tamsulosin HCl 0.4 MG CAP PO SCH (21:10)
[2023-02-11] MEDS: Melatonin 3 MG TAB PO PRN (22:13)
[2023-02-12] MEDS: Ferrous Gluconate 324 MG TAB PO SCH ×2 (09:21→17:04)
[2023-02-12] MEDS: Apixaban 5 MG TAB PO SCH ×2 (09:22→20:45)
[2023-02-12] MEDS: Amiodarone 200 MG TAB PO SCH (09:22)
[2023-02-12] MEDS: Multivit, Therapeutic 1 TAB PO SCH (09:22)
[2023-02-12] MEDS: Polyethylene Glycol 3350 17 GM Packet PO SCH (09:23)
[2023-02-12] MEDS: Senokot S 8.6-50 MG TAB PO SCH ×2 (09:23→20:46)
[2023-02-12] MEDS: Vancomycin HCl 750 MG in Sodium Chloride 0.9% 250 ML 250 ML IVPB SCH (10:35)
[2023-02-12] MEDS: Vancomycin HCl 500 MG in Sodium Chloride 0.9% 100 ML IVPB SCH (10:35)
[2023-02-12] MEDS: Ondansetron ODT 4 MG TAB PO PRN (12:47)
[2023-02-12] MEDS: Mag-Al Plus 1200 MG/1200 MG/120 MG/30 ML UDCUP PO PRN (14:47)
[2023-02-12] MEDS: Tamsulosin HCl 0.4 MG CAP PO SCH (20:46)
[2023-02-13] MEDS: Ondansetron ODT 4 MG TAB PO PRN (08:56)
[2023-02-13] MEDS: Polyethylene Glycol 3350 17 GM Packet PO SCH (08:57)
[2023-02-13] MEDS: Amiodarone 200 MG TAB PO SCH (08:57)
[2023-02-13] MEDS: Apixaban 5 MG TAB PO SCH ×2 (08:57→20:36)
[2023-02-13] MEDS: Multivit, Therapeutic 1 TAB PO SCH (08:57)
[2023-02-13] MEDS: Ferrous Gluconate 324 MG TAB PO SCH ×2 (08:57→17:11)
[2023-02-13] MEDS: Senokot S 8.6-50 MG TAB PO SCH ×2 (08:58→20:36)
[2023-02-13] MEDS: Acetaminophen 325 MG TAB PO PRN (09:07)
[2023-02-13] MEDS: Vancomycin HCl 750 MG in Sodium Chloride 0.9% 250 ML 250 ML IVPB SCH (10:30)
[2023-02-13] MEDS: Vancomycin HCl 500 MG in Sodium Chloride 0.9% 100 ML IVPB SCH (10:30)
[2023-02-13] MEDS: Polyethylene Glycol 3350 17 GM Packet PO PRN (17:11)
[2023-02-13] MEDS: Tamsulosin HCl 0.4 MG CAP PO SCH (20:36)
[2023-02-14 05:36] LABS: #Basophils 0.2 thou/uL (0.0-0.2); #Eosinphils 0.4 thou/uL (0.0-0.7); #Lymphocytes 1.7 thou/uL (1.20-3.40); #Monocytes 1.1 thou/uL (0.11-0.59); #Neutrophils 6.9 thou/uL (1.40-6.50); %Basophils 1.7 % (0.0-1.0); %Eosinophils 4.2 % (0.0-10.0); %Lymphocytes 16.8 % (21.0-51.0); %Monocytes 10.5 % (0.0-10.0); %Neutrophils 66.9 % (42.0-75.0); Hemoglobin 9.7 g/dL (14.0-18.0); Mean Corpuscular HGB CONC 33.9 g/dL (32.0-36.0); Mean Corpuscular Hemoglobin 30.5 pg (27.0-31.0); Mean Platelet Volume 6.2 fL (7.4-10.4); Platelet Count 277 10x3/uL (130-400); RBC Distribution Width 12.9 % (11.5-14.5); Red Blood Cell (RBC) Count 3.18 mill/uL (4.70-6.10); White Blood Cell (WBC) Count 10.3 10x3/uL (4.8-10.8)
[2023-02-14 05:48] LABS: Anion Gap 10 mmol/L (10-20); BUN (Urea Nitrogen) 15 mg/dL (8.4-25.7); Calc. Creatinine Clearance 59 mL/min (70-130); Calcium 8.5 mg/dL (7.8-10.44); Carbon Dioxide 27 mmol/L (23-31); Chloride 102 mmol/L (98-107); Estimated GFR 60; Glucose 91 mg/dL (83-110); Potassium 4.7 mmol/L (3.5-5.1); Sodium 134 mmol/L (136-145)
[2023-02-14 09:19] LABS: Vancomycin, Trough 22.9 ug/mL
[2023-02-14] MEDS: Vancomycin HCl 750 MG in Sodium Chloride 0.9% 250 ML 250 ML IVPB SCH (09:30)
[2023-02-14] MEDS: Polyethylene Glycol 3350 17 GM Packet PO SCH (09:34)
[2023-02-14] MEDS: Ferrous Gluconate 324 MG TAB PO SCH ×2 (09:37→17:54)
[2023-02-14] MEDS: Multivit, Therapeutic 1 TAB PO SCH (09:37)
[2023-02-14] MEDS: Amiodarone 200 MG TAB PO SCH (09:37)
[2023-02-14] MEDS: Apixaban 5 MG TAB PO SCH ×2 (09:37→22:22)
[2023-02-14] MEDS: Senokot S 8.6-50 MG TAB PO SCH ×2 (09:37→22:23)
[2023-02-14] MEDS: Metoclopramide HCl 10 MG TAB PO SCH ×2 (17:54→22:22)
[2023-02-14] MEDS: Ondansetron ODT 4 MG TAB PO PRN (18:09)
[2023-02-14] MEDS: Mag-Al Plus 1200 MG/1200 MG/120 MG/30 ML UDCUP PO PRN (18:09)
[2023-02-14] MEDS: Tamsulosin HCl 0.4 MG CAP PO SCH (22:22)
[2023-02-15] MEDS: Ferrous Gluconate 324 MG TAB PO SCH ×2 (09:37→17:16)
[2023-02-15] MEDS: Multivit, Therapeutic 1 TAB PO SCH (09:38)
[2023-02-15] MEDS: Amiodarone 200 MG TAB PO SCH (09:38)
[2023-02-15] MEDS: Apixaban 5 MG TAB PO SCH ×2 (09:38→21:44)
[2023-02-15] MEDS: Metoclopramide HCl 10 MG TAB PO SCH ×4 (09:38→21:44)
[2023-02-15] MEDS: Polyethylene Glycol 3350 17 GM Packet PO SCH (09:39)
[2023-02-15] MEDS: Senokot S 8.6-50 MG TAB PO SCH ×2 (09:39→21:44)
[2023-02-15] MEDS ORDERED: Vancomycin HCl 500 MG in Sodium Chloride 0.9% 100 ML IVPB SCH ×2 (10:00→11:00)
[2023-02-15] MEDS: Polyethylene Glycol 3350 17 GM Packet PO PRN (10:30)
[2023-02-15] MEDS: Tamsulosin HCl 0.4 MG CAP PO SCH (21:44)
[2023-02-15] MEDS: Promethazine HCl 25 MG SUPP PR PRN (21:49)
[2023-02-16] MEDS ORDERED: Vancomycin HCl 1 GM in Sodium Chloride 0.9% 250 ML 250 ML IVPB SCH (10:00)
[2023-02-16] MEDS: Senokot S 8.6-50 MG TAB PO SCH ×2 (10:02→21:53)
[2023-02-16] MEDS: Metoclopramide HCl 10 MG TAB PO SCH ×4 (10:02→21:54)
[2023-02-16] MEDS: Multivit, Therapeutic 1 TAB PO SCH (10:02)
[2023-02-16] MEDS: Amiodarone 200 MG TAB PO SCH (10:02)
[2023-02-16] MEDS: Ferrous Gluconate 324 MG TAB PO SCH ×2 (10:02→17:09)
[2023-02-16] MEDS: Apixaban 5 MG TAB PO SCH ×2 (10:02→21:54)
[2023-02-16] MEDS: Polyethylene Glycol 3350 17 GM Packet PO SCH (10:03)
[2023-02-16] MEDS: Tamsulosin HCl 0.4 MG CAP PO SCH (21:53)
[2023-02-16] MEDS: Melatonin 3 MG TAB PO PRN (21:54)
[2023-02-17] MEDS: Apixaban 5 MG TAB PO SCH ×2 (08:18→21:38)
[2023-02-17] MEDS: Amiodarone 200 MG TAB PO SCH (08:18)
[2023-02-17] MEDS: Metoclopramide HCl 10 MG TAB PO SCH ×4 (09:13→21:38)
[2023-02-17 09:16] LABS: Vancomycin, Trough 22.2 ug/mL
[2023-02-17] MEDS: Vancomycin HCl 750 MG in Sodium Chloride 0.9% 250 ML 250 ML IVPB SCH (10:23)
[2023-02-17] MEDS: Ferrous Gluconate 324 MG TAB PO SCH ×2 (10:24→16:49)
[2023-02-17] MEDS: Senokot S 8.6-50 MG TAB PO SCH ×2 (10:25→21:38)
[2023-02-17] MEDS: Polyethylene Glycol 3350 17 GM Packet PO SCH (13:59)
[2023-02-17] MEDS: Multivit, Therapeutic 1 TAB PO SCH (13:59)
[2023-02-17] MEDS: Bisacodyl 10 MG SUPP PR PRN (15:10)
[2023-02-17] MEDS: Tamsulosin HCl 0.4 MG CAP PO SCH (21:38)
[2023-02-18] MEDS: Amiodarone 200 MG TAB PO SCH (08:15)
[2023-02-18] MEDS: Apixaban 5 MG TAB PO SCH ×2 (08:15→21:13)
[2023-02-18] MEDS: Metoclopramide HCl 10 MG TAB PO SCH ×4 (09:28→21:13)
[2023-02-18] MEDS: Ferrous Gluconate 324 MG TAB PO SCH ×2 (10:54→17:18)
[2023-02-18] MEDS: Multivit, Therapeutic 1 TAB PO SCH (10:54)
[2023-02-18] MEDS ORDERED: Lidocaine 4% Cream 5 GM TUBE w/ Tegaderm ONE (11:58)
[2023-02-18] MEDS: Senokot S 8.6-50 MG TAB PO SCH ×2 (12:21→21:13)
[2023-02-18] MEDS: Polyethylene Glycol 3350 17 GM Packet PO SCH (12:23)
[2023-02-18] MEDS ORDERED: Lidocaine 4% Cream 5 GM TUBE w/ Tegaderm TOP SCH (12:30)
[2023-02-18] MEDS: Vancomycin HCl 750 MG in Sodium Chloride 0.9% 250 ML 250 ML IVPB SCH (12:50)
[2023-02-18] MEDS: Tamsulosin HCl 0.4 MG CAP PO SCH (21:13)
[2023-02-19] MEDS: Ferrous Gluconate 324 MG TAB PO SCH ×2 (09:05→17:17)
[2023-02-19] MEDS: Apixaban 5 MG TAB PO SCH ×2 (09:06→20:21)
[2023-02-19] MEDS: Metoclopramide HCl 10 MG TAB PO SCH ×4 (09:06→20:21)
[2023-02-19] MEDS: Amiodarone 200 MG TAB PO SCH (09:06)
[2023-02-19] MEDS: Multivit, Therapeutic 1 TAB PO SCH (09:07)
[2023-02-19] MEDS: Polyethylene Glycol 3350 17 GM Packet PO SCH (09:07)
[2023-02-19] MEDS: Senokot S 8.6-50 MG TAB PO SCH ×2 (09:08→20:13)
[2023-02-19 09:22] LABS: Vancomycin, Trough 21.1 ug/mL
[2023-02-19] MEDS: Vancomycin HCl 750 MG in Sodium Chloride 0.9% 250 ML 250 ML IVPB SCH (10:46)
[2023-02-19] MEDS: Polyethylene Glycol 3350 17 GM Packet PO PRN (20:21)
[2023-02-19] MEDS: Tamsulosin HCl 0.4 MG CAP PO SCH (20:21)
[2023-02-20] MEDS: Polyethylene Glycol 3350 17 GM Packet PO SCH (10:09)
[2023-02-20] MEDS: Ferrous Gluconate 324 MG TAB PO SCH ×2 (10:10→16:58)
[2023-02-20] MEDS: Senokot S 8.6-50 MG TAB PO SCH ×2 (10:10→21:14)
[2023-02-20] MEDS: Vancomycin HCl 750 MG in Sodium Chloride 0.9% 250 ML 250 ML IVPB SCH (10:39)
[2023-02-20] MEDS: Apixaban 5 MG TAB PO SCH ×2 (10:39→21:14)
[2023-02-20] MEDS: Metoclopramide HCl 10 MG TAB PO SCH ×4 (10:39→21:14)
[2023-02-20] MEDS: Amiodarone 200 MG TAB PO SCH (10:39)
[2023-02-20] MEDS: Multivit, Therapeutic 1 TAB PO SCH (10:41)
[2023-02-20 14:50] VITALS: BMI 21.7
[2023-02-20] MEDS: Amino Acids 4.25 %/Dextrose 5% 2,000 ML IV SCH (16:24)
[2023-02-20] MEDS: Tamsulosin HCl 0.4 MG CAP PO SCH (21:14)
[2023-02-21] MEDS: Ondansetron ODT 4 MG TAB PO PRN (08:56)
[2023-02-21] MEDS: Ferrous Gluconate 324 MG TAB PO SCH ×2 (08:57→17:25)
[2023-02-21] MEDS: Metoclopramide HCl 10 MG TAB PO SCH ×4 (08:57→20:57)
[2023-02-21] MEDS: Amiodarone 200 MG TAB PO SCH (08:57)
[2023-02-21] MEDS: Apixaban 5 MG TAB PO SCH ×2 (08:57→20:57)
[2023-02-21] MEDS: Multivit, Therapeutic 1 TAB PO SCH (08:58)
[2023-02-21] MEDS: Polyethylene Glycol 3350 17 GM Packet PO SCH (08:58)
[2023-02-21] MEDS: Senokot S 8.6-50 MG TAB PO SCH ×2 (08:59→20:58)
[2023-02-21 09:26] LABS: Vancomycin, Trough 19.6 ug/mL
[2023-02-21] MEDS: Vancomycin HCl 750 MG in Sodium Chloride 0.9% 250 ML 250 ML IVPB SCH (10:54)
[2023-02-21] MEDS: Amino Acids 4.25 %/Dextrose 5% 2,000 ML IV SCH (16:47)
[2023-02-21] MEDS: Tamsulosin HCl 0.4 MG CAP PO SCH (20:57)
[2023-02-22] MEDS: Metoclopramide HCl 10 MG TAB PO SCH ×5 (10:22→21:37)
[2023-02-22] MEDS: Ferrous Gluconate 324 MG TAB PO SCH ×2 (10:22→17:36)
[2023-02-22] MEDS: Vancomycin HCl 750 MG in Sodium Chloride 0.9% 250 ML 250 ML IVPB SCH (10:23)
[2023-02-22] MEDS: Amiodarone 200 MG TAB PO SCH (10:24)
[2023-02-22] MEDS: Apixaban 5 MG TAB PO SCH ×2 (10:24→21:37)
[2023-02-22] MEDS: Senokot S 8.6-50 MG TAB PO SCH ×2 (10:29→21:38)
[2023-02-22] MEDS: Polyethylene Glycol 3350 17 GM Packet PO SCH (10:29)
[2023-02-22] MEDS: Multivit, Therapeutic 1 TAB PO SCH (10:29)
[2023-02-22] MEDS: Tamsulosin HCl 0.4 MG CAP PO SCH (21:37)
[2023-02-23] MEDS: Ondansetron ODT 4 MG TAB PO PRN (09:13)
[2023-02-23] MEDS: Ferrous Gluconate 324 MG TAB PO SCH ×2 (09:21→17:33)
[2023-02-23] MEDS: Metoclopramide HCl 10 MG TAB PO SCH ×4 (09:39→20:15)
[2023-02-23] MEDS: Multivit, Therapeutic 1 TAB PO SCH (09:39)
[2023-02-23] MEDS: Vancomycin HCl 750 MG in Sodium Chloride 0.9% 250 ML 250 ML IVPB SCH (09:39)
[2023-02-23] MEDS: Amiodarone 200 MG TAB PO SCH (12:51)
[2023-02-23] MEDS: Apixaban 5 MG TAB PO SCH ×2 (12:51→20:15)
[2023-02-23] MEDS: Senokot S 8.6-50 MG TAB PO SCH ×2 (12:52→20:16)
[2023-02-23] MEDS: Polyethylene Glycol 3350 17 GM Packet PO SCH (12:52)
[2023-02-23] MEDS: Tamsulosin HCl 0.4 MG CAP PO SCH (20:15)
[2023-02-24 09:31] LABS: Vancomycin, Trough 18.2 ug/mL
[2023-02-24] MEDS: Metoclopramide HCl 10 MG TAB PO SCH ×4 (10:10→20:09)
[2023-02-24] MEDS: Ferrous Gluconate 324 MG TAB PO SCH ×2 (10:10→16:39)
[2023-02-24] MEDS: Apixaban 5 MG TAB PO SCH ×2 (10:10→20:09)
[2023-02-24] MEDS: Amiodarone 200 MG TAB PO SCH (10:10)
[2023-02-24] MEDS: Vancomycin HCl 750 MG in Sodium Chloride 0.9% 250 ML 250 ML IVPB SCH (10:11)
[2023-02-24] MEDS: Senokot S 8.6-50 MG TAB PO SCH ×2 (10:13→20:10)
[2023-02-24] MEDS: Multivit, Therapeutic 1 TAB PO SCH (10:14)
[2023-02-24] MEDS: Polyethylene Glycol 3350 17 GM Packet PO SCH (10:14)
[2023-02-24] MEDS: Tamsulosin HCl 0.4 MG CAP PO SCH (20:09)
[2023-02-25] MEDS: Metoclopramide HCl 10 MG TAB PO SCH ×4 (09:00→20:38)
[2023-02-25] MEDS: Ferrous Gluconate 324 MG TAB PO SCH ×2 (09:00→17:33)
[2023-02-25] MEDS: Apixaban 5 MG TAB PO SCH ×2 (09:00→20:38)
[2023-02-25] MEDS: Amiodarone 200 MG TAB PO SCH (09:00)
[2023-02-25] MEDS: Multivit, Therapeutic 1 TAB PO SCH (09:01)
[2023-02-25] MEDS: Senokot S 8.6-50 MG TAB PO SCH ×2 (09:01→20:38)
[2023-02-25] MEDS: Polyethylene Glycol 3350 17 GM Packet PO SCH (09:01)
[2023-02-25] MEDS: Vancomycin HCl 750 MG in Sodium Chloride 0.9% 250 ML 250 ML IVPB SCH (10:06)
[2023-02-25] MEDS: Tamsulosin HCl 0.4 MG CAP PO SCH (20:38)
[2023-02-26 07:34] VITALS: BP 107/64; TEMP 97.7
[2023-02-26] MEDS: Ferrous Gluconate 324 MG TAB PO SCH (09:18)
[2023-02-26] MEDS: Multivit, Therapeutic 1 TAB PO SCH (09:18)
[2023-02-26] MEDS: Amiodarone 200 MG TAB PO SCH (09:18)
[2023-02-26] MEDS: Metoclopramide HCl 10 MG TAB PO SCH ×2 (09:18→11:44)
[2023-02-26] MEDS: Apixaban 5 MG TAB PO SCH (09:18)
[2023-02-26] MEDS: Polyethylene Glycol 3350 17 GM Packet PO SCH (09:19)
[2023-02-26] MEDS: Senokot S 8.6-50 MG TAB PO SCH (09:19)
[2023-02-26 11:18] LABS: Platelet Count 196 10x3/uL (130-400)
== END 2023-02-26 12:10 | disposition hospice, home (50) | DRG 690 ==
LOC: MADMS 18:15
PROVIDERS: ADMIT Family Medicine; ATTEND Family Medicine
DX: N39.0 Urinary tract infection, site not specified (principal); C15.9 Malignant neoplasm of esophagus, unspecified; R78.81 Bacteremia; J96.11 Chronic respiratory failure with hypoxia; R64 Cachexia; Z51.5 Encounter for palliative care; R53.81 Other malaise; R53.1 Weakness; N40.0 Benign prostatic hyperplasia without lower urinary tract symptoms; I10 Essential (primary) hypertension; I48.0 Paroxysmal atrial fibrillation; Z96.641 Presence of right artificial hip joint; D63.8 Anemia in other chronic diseases classified elsewhere; Z20.822 Contact with and (suspected) exposure to COVID-19; B95.62 Methicillin resistant Staphylococcus aureus infection as the cause of diseases classified elsewhere; Z95.0 Presence of cardiac pacemaker; Z79.899 Other long term (current) drug therapy; Z87.891 Personal history of nicotine dependence; Z98.890 Other specified postprocedural states; Z99.81 Dependence on supplemental oxygen; Z68.22 Body mass index [BMI] 22.0-22.9, adult; Z53.29 Procedure and treatment not carried out because of patient's decision for other reasons
CPT/HCPCS: 36415; 80048; 80053; 80202; 82565; 85014; 85018; 85025; 85049; 85652; 86140; 87811; J1642; J1650; J3370; J3490; J7050; Q0162